=== PATIENT | female | born 1995 | race Caucasian/White ===

== ENCOUNTER 2023-10-07 18:00 | Inpatient (IN) | payer BC, SELFPAY ==
[2023-10-07] VITALS (9 sets, daily range): BP systolic 96–107; BP diastolic 62–72; PULSE 121–151; RESP 17–18; TEMP 36.5–36.8; O2SAT 92–98; BMI 32.0
[2023-10-07 19:47] LABS: Basophils # 0.1 10^3/uL (0.0-0.1); Basophils % 0.6 %; Eosinophils # 0.2 10^3/uL (0.0-0.8); Hematocrit 52.6 % (36-47); Lymphocytes # 1.8 10^3/uL (0.8-4.8); Lymphocytes % 9.5 %; Mean Corpuscular HGB Conc 35.6 g/dL (30-55); Mean Corpuscular Hemoglobin 33.3 pg (27-33); Mean Corpuscular Volume 93.6 fl (85-98); Mean Platelet Volume 8.8 fL (7.4-10.4); Monocytes # 0.8 10^3/uL (0.2-0.9); Monocytes % 4.1 %; Neutrophils # 15.88 10^3/uL (1.8-7.7); Neutrophils % 83.7 %; Nucleated Red Blood Cells % 0 %; Platelet Count 351 10^3/cmm (157-399); Red Blood Count 5.62 10^6/uL (3.85-5.65); Red Cell Distribution Width 12.1 % (12.1-15.1); White Blood Count 18.98 10^3/uL (3.29-11.43)
[2023-10-07 19:50] LABS: Add Urine Microscopic? YES
[2023-10-07 19:51] LABS: Glucose Urine UA Norm (Normal); Ketones Urine 1+ (Negative); Protein Urine 2+ (Negative); Specific Gravity, Urine 1.025 (1.005-1.030); Urine Appearance Cloudy (CLEAR); Urine Color Amber (Yellow); pH Urine 5 (5-7)
[2023-10-07 19:52] LABS: Add Urine Culture? Yes; Amorphous Sediment Urine TRACE /hpf; Bacteria Urine 2+ /hpf; Bilirubin Urine 2+ (Negative); Blood Urine 3+ (Negative); Coarse Granular Casts Urine 0-4 /lpf; Fine Granular Casts Urine 0-4 /lpf; Hyaline Casts Urine 0-4 /lpf; Leukocyte Esterase Urine 1+ (Negative); Nitrate Urine Positive (Negative); RBC Urine 15-25 /hpf (0-2); Urobilinogen Urine 4 mg/dL (Negative); WBC Urine 15-25 /hpf (0-5)
[2023-10-07 19:56] LABS: HCG Qualitative Urine. Negative (Negative)
[2023-10-07 20:03] LABS: Alanine Aminotransferase 52 U/L (0-33); Albumin Level 3.7 g/dL (3.5-5.2); Alkaline Phosphatase 124 U/L (35-105); Anion Gap 20.4 (5-19); Aspartate Amino Transferase 44 U/L (0-32); Blood Urea Nitrogen 20 mg/dL (6-20); Carbon Dioxide 20 mmol/L (22-29); Chloride 94 mmol/L (98-107); Globulin 3.5 g/dL (1.3-4.6); Glomerular Filtration Rate 41.7 mL/min (90-130); Glucose 138 mg/dL (65-115); Osmolality Calculated 277 mOsm/kg (285-295); Potassium 3.4 mmol/L (3.5-5.1); Sodium 131 mmol/L (136-145); Total Bilirubin 1.7 mg/dL (0.15-1.2); Total Protein 7.2 g/dL (6.6-8.7)
--- NOTE | 2023-10-07 20:03 | CTR_ITS ---
PROCEDURE INFORMATION: Exam: CT Abdomen And Pelvis With Contrast Exam date and time: 10/07/2023 8:26 PM Age: 28 years old Clinical indication: Pain and abnormal findings; Abnormal lab test; Elevated lipase and elevated wbc; Nausea and vomiting; Abdominal pain; Generalized; Prior surgery; Surgery date: 6+ months; Surgery type: Csection; Patient HX: Diffuse abd pain with n/v. Wbc 19k. Nitrate positive on ua. Lipase 947. [place]. ; Additional info: Abd distension, n/v abd pain TECHNIQUE: Imaging protocol: Computed tomography of the abdomen and pelvis with contrast. Radiation optimization: All CT scans at this facility use at least one of these dose optimization techniques: automated exposure control; mA and/or kV adjustment per patient size (includes targeted exams where dose is matched to clinical indication); or iterative reconstruction. Contrast material: OMNI 350; Contrast volume: 100 ml; Contrast route: INTRAVENOUS (IV); COMPARISON: US OB >= 14 weeks fetus [id number] 11/01/2016 8:25 AM RADIATION DOSE METRICS: Total DLP (mGy-cm): 815.36 FINDINGS: Lungs: Bibasilar atelectasis versus infiltrate. Pleural spaces: Small bilateral pleural effusions. Liver: Hepatic steatosis. Gallbladder and bile ducts: Normal. No calcified stones. No ductal dilation. Pancreas: Peripancreatic edema nonlocalized fluid with fluid extending throughout the remainder of the abdomen, concerning for pancreatitis, please correlate clinically. Spleen: Normal. No splenomegaly. Adrenal glands: Normal. No mass. Kidneys and ureters: Normal. No hydronephrosis. Stomach and bowel: Unremarkable. No obstruction. No mucosal thickening. Appendix: No evidence of appendicitis. Intraperitoneal space: Unremarkable. No free air. No significant fluid collection. Vasculature: Unremarkable. No abdominal aortic aneurysm. Lymph nodes: Unremarkable. No enlarged lymph nodes. Urinary bladder: Unremarkable as visualized. Reproductive: Unremarkable as visualized. Bones/joints: Unremarkable. No acute fracture. Soft tissues: Unremarkable. CT/CT abdomen pelvis w con* [id number] IMPRESSION: 1. Peripancreatic edema nonlocalized fluid with fluid extending throughout the remainder of the abdomen, concerning for pancreatitis, please correlate clinically. 2. Small bilateral pleural effusions. 3. Bibasilar atelectasis versus infiltrate. 4. Hepatic steatosis.
--- NOTE | 2023-10-07 20:07 | ED_ITS ---
HPI - Abdominal Pain 2 General: Chief Complaint: Abdominal Pain Stated Complaint: abd pain Time Seen by Provider: 10/07/23 19:33 History of Present Illness: Patient presents to the ER with diffuse abdominal pain and bloating. Patient states her last bowel movement was approximately 2 days ago. She had has nausea and vomiting today. The pain is diffuse does not radiate. Patient denies any urinary problems. Patient does not have an appetite and has not ate or drink anything in the last couple days other than a couple bites of chicken soup. Patient denies any abdominal surgery other than a . Patient does not routinely have abdominal problems. Review of Systems 2 General: Reports: 10 or more systems reviewed and unremarkable except in HPI and below PFSH ED 2 PFSH: Medical History Body mass index (BMI) of 30 to 39 in adult Allergic rhinitis due to allergen Insomnia delivery delivered Wellness examination Smoker Plaque psoriasis Depression Social History Smoking and tobacco/nicotine status: current every day tobacco/nicotine user Alcohol intake: current Alcohol intake frequency: few times a week Physical Exam 2 Const: COMMON NORMALS: no acute distress, average body habitus, patient oriented x3, no limitations, healthy appearing, alert and well nourished HENMT: COMMON NORMALS: normocephalic, atraumatic, hearing grossly normal bilaterally, external ears normal, Normal external nose present, moist oral mucous membranes and oropharynx normal HEAD & SCALP: normocephalic and atraumatic NOSE: Normal external nose present EXTERNAL EAR: Yes external ears normal Neck/C-Spine: COMMON NORMALS: no JVD Chest: COMMONS NORMALS: normal inspection of the chest and normal palpation of entire chest wall Resp: COMMON NORMALS: normal respiratory effort, No retractions, No use of accessory muscles and clear to auscultation bilaterally AUSCULTATION: clear to auscultation bilaterally Cardio: COMMON NORMALS: no JVD, regular rhythm, S1 normal heart sound present, S2 normal heart sound present, No gallops present (Cardio) and No murmurs present (Cardio); negative for regular rate (Tachycardic) RATE: abnormal rate (Tachycardic) RHYTHM: regular rhythm HEART SOUNDS: S1 normal heart sound present and S2 normal heart sound present GI: COMMON NORMALS: Soft to palpation, No hepatosplenomegaly present and no masses; negative for Normal to inspection, nondistended, normoactive bowel sounds present (Abdomen distended hypoactive bowel sounds tender to palpation diffusely) PALPATION: Yes Soft to palpation and Yes No hepatosplenomegaly present Neuro: COMMON NORMALS: patient oriented x3 SENSORIUM/ORIENTATION: Yes alert Course 2 Vital Signs: Vital signs: Vital Signs Temperature 97.7 F 10/07/23 18:24 Pulse Rate 133 H 10/07/23 19:46 Respiratory Rate 18 10/07/23 20:42 Blood Pressure 107/72 10/07/23 19:25 Pulse Oximetry 92 10/07/23 19:46 Oxygen Delivery Me thod Room Air 10/07/23 19:25 MDM - Abdominal Pain Medical Decision Making Patient lab work in the ER which showed a white count of 18.9 hemoglobin hematocrit of 18.7, 52.6, mildly elevated liver enzymes total bilirubin at 1.7, ALT of 44, AST to 52, lipase greater 947, urine drug screen showed positive for amphetamines benzos and THC, urinalysis showed positive for infection. CT scan showed positive for pancreatitis. Patient was given 30 mg Toradol IV, 10 mg Reglan, 4 mg of morphine, 1 L bolus normal saline. Dr. Smith was consulted who agreed to admit the patient for further evaluation and treatment. Differential Diagnosis Likely abdominal pain; Unlikely acute appendicitis, calculus of kidney, constipation, diverticulitis, endometriosis, gastroenteritis, pancreatitis or small bowel obstruction Medical Records I reviewed the patient's medical records. Lab Data I reviewed the patient's lab results. 10/07/23 19:34 10/07/23 19:34 Labs/Radiology: Radiology Impressions Abdomen/Pelvis CT 10/07/23 20:03 IMPRESSION: 1. Peripancreatic edema nonlocalized fluid with fluid extending throughout the remainder of the abdomen, concerning for pancreatitis, please correlate clinically. 2. Small bilateral pleural effusions. 3. Bibasilar atelectasis versus infiltrate. 4. Hepatic steatosis. Laboratory Results WBC 18.98 10^3/uL (3.29-11.43) H 10/07/23 19:34 RBC 5.62 10^6/uL (3.85-5.65) 10/07/23 19:34 Hgb 18.70 g/dL (11.27-16.99) H 10/07/23 19:34 Hct 52.6 % (36-47) H 10/07/23 19:34 MCV 93.6 fl (85-98) 10/07/23 19:34 MCH 33.3 pg (27-33) H 10/07/23 19:34 MCHC 35.6 g/dL (30-55) 10/07/23 19:34 RDW 12.1 % (12.1-15.1) 10/07/23 19:34 Plt Count 351 10^3/cmm (157-399) 10/07/23 19:34 MPV 8.8 fL (7.4-10.4) 10/07/23 19:34 Neut % (Auto) 83.7 % 10/07/23 19:34 Lymph % (Auto) 9.5 % 10/07/23 19:34 [place] % (Auto) 4.1 % 10/07/23 19:34 Eos % (Auto) 1.0 % 10/07/23 19:34 Baso % (Auto) 0.6 % 10/07/23 19:34 Neut # (Auto) 15.88 10^3/uL (1.8-7.7) H 10/07/23 19:34 Lymph # (Auto) 1.8 10^3/uL (0.8-4.8) 10/07/23 19:34 [place] # (Auto) 0.8 10^3/uL (0.2-0.9) 10/07/23 19:34 Eos # (Auto) 0.2 10^3/uL (0.0-0.8) 10/07/23 19:34 Baso # (Auto) 0.1 10^3/uL (0.0-0.1) 10/07/23 19:34 Nucleated RBC % (auto) 0 % 10/07/23 19:34 Nucleated RBCs # 0.0 /100WBC 10/07/23 19:34 Sodium 131 mmol/L (136-145) L 10/07/23 19:34 Potassium 3.4 mmol/L (3.5-5.1) L 10/07/23 19:34 Chloride 94 mmol/L (98-107) L 10/07/23 19:34 Carbon Dioxide 20 mmol/L (22-29) L 10/07/23 19:34 Anion Gap 20.4 (5-19) H 10/07/23 19:34 BUN 20 mg/dL (6-20) 10/07/23 19:34 Creatinine 1.5 mg/dL (0.5-0.9) H 10/07/23 19:34 GFR Calculation 41.7 mL/min (90-130) L 10/07/23 19:34 Glucose 138 mg/dL (65-115) H 10/07/23 19:34 Calculated Osmolality 277 mOsm/kg (285-295) L 10/07/23 19:34 Calcium 8.8 mg/dL (8.5-10.5) 10/07/23 19:34 Total Bilirubin 1.7 mg/dL (0.15-1.2) H 10/07/23 19:34 AST 44 U/L (0-32) H 10/07/23 19:34 ALT 52 U/L (0-33) H 10/07/23 19:34 Alkaline Phosphatase 124 U/L (35-105) H 10/07/23 19:34 Total Protein 7.2 g/dL (6.6-8.7) 10/07/23 19:34 Albumin 3.7 g/dL (3.5-5.2) 10/07/23 19:34 Globulin 3.5 g/dL (1.3-4.6) 10/07/23 19:34 Lipase > 947 U/L (13-60) H 10/07/23 19:34 HCG, Qual Negative (Negative) 10/07/23 19:37 Urine Color [place] (Yellow) 10/07/23 19:37 Urine Appearance Cloudy (CLEAR) A 10/07/23 19:37 Urine pH 5 (5-7) 10/07/23 19:37 Ur Specific [place] 1.025 (1.005-1.030) 10/07/23 19:37 Urine Protein 2+ (Negative) H 10/07/23 19:37 Urine Glucose (UA) Norm (Normal) 10/07/23 19:37 Urine Ketones 1+ (Negative) H 10/07/23 19:37 Urine Blood 3+ (Negative) H 10/07/23 19:37 Urine Nitrate Positive (Negative) H 10/07/23 19:37 Urine Bilirubin 2+ (Negative) H 10/07/23 19:37 Urine Urobilinogen 4 mg/dL (Negative) H 10/07/23 19:37 Ur Leukocyte Esterase 1+ (Negative) H 10/07/23 19:37 Urine RBC 15-25 /hpf (0-2) H 10/07/23 19:37 Urine WBC 15-25 /hpf (0-5) H 10/07/23 19:37 Ur Squamous Epith Cells 5-10 /hpf (0-5) H 10/07/23 19:37 Amorphous Sediment Trace /hpf 10/07/23 19:37 Urine Bacteria 2+ /hpf (NONE) H 10/07/23 19:37 Hyaline Casts 0-4 /lpf H 10/07/23 19:37 Fine Granular Casts 0-4 /lpf H 10/07/23 19:37 Coarse Granular Casts 0-4 /lpf H 10/07/23 19:37 Urine Opiates Screen Negative ng/mL (Negative) 10/07/23 19:32 Ur Barbiturates Screen Negative ng/mL (Negative) 10/07/23 19:32 Ur Phencyclidine Scrn Negative ng/mL (Negative) 10/07/23 19:32 Ur Amphetamines Screen Positive ng/mL (Negative) H 10/07/23 19:32 U Benzodiazepines Scrn Positive ng/mL (Negative) H 10/07/23 19:32 Urine Cocaine Screen Negative ng/mL (Negative) 10/07/23 19:32 U Marijuana (THC) Screen Positive ng/mL (Negative) H 10/07/23 19:32 All radiology interpretation(s) finalized by discharge Discharge Plan Discharge Patient Disposition: Admitted As Inpatient Clinical Impression: Amphetamine abuse Pancreatitis Qualifiers: Chronicity: acute Pancreatitis type: unspecified pancreatitis type Acute pancreatitis complication: no infection or necrosis Qualified Code(s): K85.90 - Acute pancreatitis without necrosis or infection, unspecified Urinary tract infection Qualifiers: Urinary tract infection type: acute cystitis Hematuria presence: with hematuria Qualified Code(s): N30.01 - Acute cystitis with hematuria Condition: Stable Coding Level of Care Code ED Inspector Returned Materials for Neil Rojas
[2023-10-07] MEDS: sodium chloride 0.9% 1,000 ML 999 ML IV (20:10)
[2023-10-07] MEDS: ketorolac 30 mg/mL INJ IVP (20:11)
[2023-10-07] MEDS: ondansetron 2 mg/ML SDV 2 mL 4 MG IVP (20:12)
[2023-10-07 20:18] LABS: Calcium 8.8 mg/dL (8.5-10.5)
[2023-10-07] MEDS: iohexol 350 mg/mL 500 mL Btl (per mL) IV (20:29)
[2023-10-07 20:35] LABS: Amphetamines Screen Urine Positive (Negative); Barbiturates Screen Urine Negative (Negative); Benzodiazepines Screen Urine Positive (Negative); Cocaine Screen Urine Negative (Negative); Opiate Screen Urine Negative (Negative); PCP Screen Urine Negative (Negative); THC Screen Urine Positive (Negative)
[2023-10-07] MEDS: morphine 4 mg/mL SDV 1 mL IVP (20:42)
[2023-10-07] MEDS: piperacillin-tazobactam 3.375 GM in sodium chloride 0.9% (plus) 50 ML IV (21:27)
--- NOTE | 2023-10-07 22:20 | P.HP_ITS ---
Providers/Chief Complaint 2 Admitting Physician: Michael Hearn MD Primary Care Provider: Christoph Chapman MD Chief Complaint: abd pain History of Present Illness Yara Rodriguez is a 28 year old female with a past medical history of depression, who presents to [facility] for a 48-hour history of nausea, vomiting, abdominal bloating, poor appetite. 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, denies blacking out from alcohol consumption, does report smoking, her urine was positive for methamphetamines, benzodiazepines, she denies this, she tells me she has not used any drugs, she has been using Benadryl and Mucinex Review of Systems 2 Const: Denies: fever(s) or chills Card: Denies: chest pain Resp: Denies: dyspnea GI: Reports: abdominal pain, nausea and vomiting Medications/Allergies Home Medications Medication Instructions Recorded Confirmed Last Taken Type prenat.vits,pablo,hmf-myrp-dqizi 1 tab PO DAILY 12/25/20 12/01/22 Unknown History bupropion HCl 200 mg tablet,12 hr 200 mg PO QAM depression #30 tabs 11/22/22 12/01/22 Unknown Rx sustained-release fluticasone propionate 50 2 spray intranasal DAILY PRN 11/22/22 12/01/22 Unknown Rx mcg/actuation nasal allergy symptoms #16 grams spray,suspension hydroxyzine HCl 25 mg tablet 25 mg PO BID PRN insomnia #60 tabs 11/22/22 12/01/22 Unknown Rx clobetasol 0.05 % scalp solution 1 applic topical DAILY #50 mL 12/01/22 12/01/22 Unknown Rx ketoconazole 2 % shampoo 1 applic topical .COMPLEX #120 mL 12/01/22 12/01/22 Unknown Rx triamcinolone acetonide 0.1 % 1 applic topical BID L40.9 #80 03/15/23 Unknown Rx topical ointment grams clobetasol 0.05 % topical ointment 1 applic topical BID L40.9 2 weeks 04/17/23 Unknown Rx #60 grams Allergies Allergy/AdvReac Type Severity Reaction Status Date / Time No Known Allergies Allergy Verified 12/01/22 14:02 PFSH Acute 2 PFSH: Medical History (Updated 10/07/23 @ 22:24 by Michael Hearn MD) Body mass index (BMI) of 30 to 39 in adult Allergic rhinitis due to allergen Insomnia delivery delivered Wellness examination Smoker Plaque psoriasis Depression Surgical History (Updated 10/07/23 @ 22:22 by Michael Hearn MD) History of Family History (Updated 10/07/23 @ 22:23 by Michael Hearn MD) Mother CAD (coronary artery disease) Social History Smoking and tobacco/nicotine status: current every day tobacco/nicotine user Alcohol intake: current Alcohol intake frequency: few times a week Vitals/I&O/Wt Last Vital Signs Temp 97.7 F 10/07/23 18:24 Pulse 133 H 10/07/23 19:46 Resp 18 10/07/23 20:42 BP 107/72 10/07/23 19:25 Pulse Ox 92 10/07/23 19:46 O2 Del Method Room Air 10/07/23 19:25 Weight last 48 hrs Weight 79.379 kg Physical Exam 2 Const: COMMON NORMALS: no acute distress and patient oriented x3 HENMT: COMMON NORMALS: normocephalic HEAD & SCALP: normocephalic Eye: COMMON NORMALS: Equal, round and reactive pupils present and EOMs intact bilaterally Neck/C-Spine: COMMON NORMALS: no JVD Lymph: LYMPHATIC: no lymphadenopathy noted Resp: COMMON NORMALS: normal respiratory effort, No retractions, No use of accessory muscles and clear to auscultation bilaterally AUSCULTATION: clear to auscultation bilaterally Cardio: COMMON NORMALS: regular rate, S1 normal heart sound present and S2 normal heart sound present RATE: tachycardic RHYTHM: regular rhythm H EART SOUNDS: S1 normal heart sound present and S2 normal heart sound present GI: OTHER: Abdomen soft, distended, diminished bowel sounds in all 4 quadrants, no guarding, no rebound, no rigidity, does have diffuse tenderness Extremity: COMMON NORMALS: no calf tenderness and no pedal edema Neuro: COMMON NORMALS: patient oriented x3, CN's II-XII intact bilaterally and moves all extremities Psych: COMMON NORMALS: mental status grossly normal Data 10/07/23 19:34 10/07/23 19:34 A&P Assessment and plan (1) Acute alcoholic pancreatitis: (2) Alcoholism: (3) Urinary tract infection: Qualifiers: Hematuria presence: with hematuria Urinary tract infection type: acute cystitis Qualified Code(s): N30.01 - Acute cystitis with hematuria (4) Acute kidney injury: (5) Transaminitis: Plan Alcoholic pancreatitis Plan -N.p.o. -Zofran Reglan for nausea -IV fluids -Morphine for pain control -Serial abdominal exams Metabolic acidosis, secondary dehydration, IV fluids Transaminitis, with hyperbilirubinemia, likely secondary to pancreatitis Alcoholism, high risk of alcohol withdrawal -[facility] protocol -Antibiotic ÁNGELA, IV fluids Hyponatremia, IV fluids UTI, Rocephin Urine positive for amphetamines, benzodiazepines, marijuana, patient denies drug use Attestations 2 Medical Necessity Statement*: Patient requires hospitalization, inpatient, greater than 2 midnights, for alcoholic pancreatitis, alcoholism, ÁNGELA, UTI, Diagnoses Acute alcoholic pancreatitis K85.20 Alcoholism F10.20 Urinary tract infection N30.01 Hematuria presence: with hematuria Urinary tract infection type: acute cystitis Acute kidney injury N17.9 Transaminitis R74.01
--- NOTE | 2023-10-07 23:07 | ECG_ITS ---
[facility] Test Date: 2023-10-07 Pat Name: Yara Rodriguez Department: Room: 253 Gender: Female Jail Guard: : 1995 Requested By: Michael Hearn Order Number: [id number] Krista MD: Ryanne Montoya M.D. Measurements Intervals [place] Rate: 124 P: 16 WV: 132 QRS: 60 QRSD: 89 T: 29 QT: 321 QTc: 462 Interpretive Statements SINUS TACHYCARDIA POSSIBLE ANTERIOR MYOCARDIAL INFARCTION , PROBABLY OLD [30 ms Q WAVE IN V3/V4, OR R < 0.2 mV IN V4] ABNORMAL RHYTHM ECG Compared to ECG 05/18/2016 16:10:50 Myocardial infarct finding now present Sinus rhythm no longer present Sinus arrhythmia no longer present Incomplete right bundle-branch block no longer present Electronically Signed On 10-08-2023 21:22:59 HEALTH SAFETY SPECIALIST by Ryanne Montoya M.D. [id number]
[2023-10-07 23:16] LABS: Estmated Average Glucose 105; Hemoglobin A1C 5.3 % (4.0-6.0)
[2023-10-07 23:17] LABS: Lactic Sepsis W/Reflex 1.9 mmol/L (0.5-2.2); Troponin(5th) Baseline < 6 ng/L (0-10)
[2023-10-07 23:25] LABS: Procalcitonin 0.21 ng/mL (0-0.5); Thyroid Stimulating Hormone 1.91 uIU/mL (0.27-4.20)
[2023-10-07] MEDS: pantoprazole 40 mg SDV IVP (23:27)
[2023-10-07] MEDS: morphine 4 mg/mL SDV 1 mL 2 MG IVP (23:28)
[2023-10-07] MEDS: sodium chloride 0.9% 1,000 ML 125 ML IV (23:28)
[2023-10-07 23:36] LABS: Chol HDL Ratio 6.46 mg/dL (0.0-4.40); Cholesterol 168 mg/dL (0-200); HDL Cholesterol 26 mg/dL (60-100); LDL Cholesterol Calculated 89 mg/dL (50-129); LDL HDL Ratio 3.42 RATIO (0.00-3.22); Magnesium 1.5 mg/dL (1.7-2.3); Phosphorus 4.1 mg/dL (2.5-4.5); Triglycerides 267 mg/dL (0-150)
[2023-10-07 23:38] LABS: Alcohol Level < 10 mg/dL (0-10)
[2023-10-07 23:49] LABS: C Reactive Protein 358.4 mg/L (0.0-4.9)
[2023-10-08] VITALS (14 sets, daily range): BP systolic 105–123; BP diastolic 65–79; PULSE 112–133; RESP 16–20; TEMP 36.8–37.2; O2SAT 90–95; BMI 33.2
[2023-10-08 01:25] LABS: Troponin 5 2HR Delta 0.00001 ABS# (0-10)
[2023-10-08] MEDS: HYDROmorphone 1 mg/mL INJ 1 mL IVP ×3 (01:58→10:18)
[2023-10-08] MEDS: sodium chloride 0.9% 1,000 ML 125 ML IV ×3 (05:58→23:25)
[2023-10-08 06:03] LABS: Basophils # 0.1 10^3/uL (0.0-0.1); Basophils % 0.4 %; Eosinophils # 0.4 10^3/uL (0.0-0.8); Eosinophils % 1.9 %; Hematocrit 48.6 % (36-47); Lymphocytes # 2.1 10^3/uL (0.8-4.8); Lymphocytes % 10.7 %; Mean Corpuscular HGB Conc 34.8 g/dL (30-55); Mean Corpuscular Hemoglobin 32.9 pg (27-33); Mean Corpuscular Volume 94.7 fl (85-98); Mean Platelet Volume 8.8 fL (7.4-10.4); Monocytes # 1.1 10^3/uL (0.2-0.9); Monocytes % 5.6 %; Neutrophils # 15.98 10^3/uL (1.8-7.7); Neutrophils % 80.1 %; Nucleated Red Blood Cells % 0 %; Platelet Count 321 10^3/cmm (157-399); Red Blood Count 5.13 10^6/uL (3.85-5.65); Red Cell Distribution Width 12.3 % (12.1-15.1); White Blood Count 19.93 10^3/uL (3.29-11.43)
[2023-10-08 06:24] LABS: Alanine Aminotransferase 37 U/L (0-33); Albumin Level 3.2 g/dL (3.5-5.2); Alkaline Phosphatase 110 U/L (35-105); Anion Gap 15.9 (5-19); Aspartate Amino Transferase 34 U/L (0-32); Blood Urea Nitrogen 20 mg/dL (6-20); Calcium 7.8 mg/dL (8.5-10.5); Carbon Dioxide 23 mmol/L (22-29); Chloride 99 mmol/L (98-107); Globulin 2.6 g/dL (1.3-4.6); Glomerular Filtration Rate 66.5 mL/min (90-130); Glucose 102 mg/dL (65-115); Magnesium 1.7 mg/dL (1.7-2.3); Osmolality Calculated 281 mOsm/kg (285-295); Potassium 3.9 mmol/L (3.5-5.1); Sodium 134 mmol/L (136-145); Total Bilirubin 1.6 mg/dL (0.15-1.2); Total Protein 5.8 g/dL (6.6-8.7)
[2023-10-08 06:41] LABS: Troponin 5 6HR Delta 0 ng/L (0-12)
[2023-10-08] MEDS: cefTRIAXone 1,000 MG in sodium chloride 0.9% (plus) 50 ML 100 MG IV (10:00)
[2023-10-08] MEDS: folic acid 1 mg Tablet PO (10:00)
[2023-10-08] MEDS: multivitamin therapeutic Tablet 1 TAB PO (10:00)
[2023-10-08] MEDS: thiamine 100 mg Tablet PO (10:00)
[2023-10-08 12:57] LABS: Iron 16 ug/dL (37-145); Percent Saturation 8.6 % (20-50); Total Iron Binding Capacity 185 mcg/dl; Unsaturated Iron Binding 169 ug/dL (112-347)
[2023-10-08 13:12] LABS: Procalcitonin 0.54 ng/mL (0-0.5); Vitamin B12 1087 pg/mL (232-1245)
[2023-10-08] MEDS: HYDROmorphone 1 mg/mL INJ 1 mL 0.5 MG IVP ×3 (14:18→22:45)
--- NOTE | 2023-10-08 15:30 | P.PN_ITS ---
Subjective 2 Subjective: Admitted overnight. States pain is well-controlled for now. Denies any nausea, vomiting, headache. Does state that she drinks at least 3 or 4 shots of alcohol daily. Denies use of amphetamines. Vitals/I&O/Wt Last Vital Signs Temp 98.5 F 10/08/23 12:00 Pulse 120 H 10/08/23 12:00 Resp 18 10/08/23 14:18 BP 105/65 10/08/23 12:00 Pulse Ox 95 10/08/23 14:18 O2 Del Method Nasal Cannula 10/08/23 12:00 10/08/23 10/08/23 10/08/23 06:59 14:59 22:59 Intake Total 1862.5 / 1862.5 1050 / 1050 Balance 1862.5 / 1862.5 1050 / 1050 Weight last 48 hrs Weight 82.327 kg Weight 79.379 kg Weight 79.379 kg Physical Exam 2 Const: COMMON NORMALS: no acute distress and patient oriented x3 HENMT: COMMON NORMALS: normocephalic HEAD & SCALP: normocephalic Eye: COMMON NORMALS: Equal, round and reactive pupils present and EOMs intact bilaterally PUPIL: Yes Equal, round and reactive pupils present Neck/C-Spine: COMMON NORMALS: no JVD Lymph: LYMPHATIC: no lymphadenopathy noted Resp: COMMON NORMALS: normal respiratory effort, No retractions, No use of accessory muscles and clear to auscultation bilaterally AUSCULTATION: clear to auscultation bilaterally Cardio: COMMON NORMALS: no JVD, regular rate, regular rhythm, S1 normal heart sound present and S2 normal heart sound present RATE: regular rate and tachycardic RHYTHM: regular rhythm HEART SOUNDS: S1 normal heart sound present and S2 normal heart sound present GI: OTHER: Abdomen soft, distended, diminished bowel sounds in all 4 quadrants, no guarding, no rebound, no rigidity, does have diffuse tenderness Extremity: COMMON NORMALS: no calf tenderness and no pedal edema Neuro: COMMON NORMALS: patient oriented x3, CN's II-XII intact bilaterally and moves all extremities Psych: COMMON NORMALS: mental status grossly normal Data 10/08/23 05:45 10/08/23 05:45 A&P Assessment and plan (1) Acute alcoholic pancreatitis: (2) Alcoholism: (3) Urinary tract infection: Qualifiers: Hematuria presence: with hematuria Urinary tract infection type: acute cystitis Qualified Code(s): N30.01 - Acute cystitis with hematuria (4) Acute kidney injury: (5) Transaminitis: Plan Pancreatitis: Most likely in setting of alcohol abuse. Given young age cannot rule out autoimmune disorder. Patient also has history of psoriasis. Check EVELIA panel. No concerns for gallstones. Triglycerides elevated but less than 500. Conservative treatment. Keep NPO. IV hydration. Trial of liquid diet tomorrow. Continue with current pain medications. Leukocytosis: Most likely in setting of aggressive inflammation from pancreatitis. For now continue with IV antibiotics. Switch from ceftriaxone to Zosyn for now. No blood cultures taken on admission. If patient spikes fever will check blood cultures. Transaminitis/hyperbilirubinemia: In setting of pancreatitis. CT abdomen pelvis negative for gallbladder pathology. ÁNGELA: Creatinine trending down. Down to 1.1. Most likely elevated on admission in setting of dehydration. Iron deficiency anemia. Check procalcitonin, vitamin B12, folate level. TSH or appreciated on admission. Alcohol abuse: [facility] protocol. Urine drug screen positive for amphetamines, benzodiazepines, marijuana. Patient denies drug abuse. UA concerning for mild UTI. Nitrite positive, leukoesterase positive. Zosyn should cover for UTI. Follow-up urine cultures. Attestations 2 Medical Necessity Statement*: Requires further hospitalization for management of pancreatitis in a patient with history of alcohol abuse, drug screen positive for amphetamines and UTI Diagnoses Acute alcoholic pancreatitis K85.20 Alcoholism F10.20 Urinary tract infection N30.01 Hematuria presence: with hematuria Urinary tract infection type: acute cystitis Acute kidney injury N17.9 Transaminitis R74.01
[2023-10-08] MEDS: piperacillin-tazobactam 3.375 GM in sodium chloride 0.9% (plus) 50 ML IV ×2 (17:20→23:29)
[2023-10-08] MEDS: acetaminophen 325 mg Tablet 650 MG PO (21:05)
[2023-10-08] MEDS: trazodone 50 mg Tablet PO (21:06)
[2023-10-08] MEDS: enoxaparin 40 mg/0.4 mL Syringe SUBCUT (22:46)
[2023-10-08] MEDS: pantoprazole 40 mg SDV IVP (22:46)
[2023-10-09] VITALS (16 sets, daily range): BP systolic 105–122; BP diastolic 63–78; PULSE 109–129; RESP 14–22; TEMP 36.3–37.4; O2SAT 90–93; BMI 33.9
[2023-10-09] MEDS: HYDROmorphone 1 mg/mL INJ 1 mL 0.5 MG IVP (02:40)
[2023-10-09 04:49] LABS: Basophils # 0.1 10^3/uL (0.0-0.1); Basophils % 0.3 %; Eosinophils # 0.2 10^3/uL (0.0-0.8); Eosinophils % 1.3 %; Hematocrit 38.6 % (36-47); Lymphocytes # 1.5 10^3/uL (0.8-4.8); Lymphocytes % 8.5 %; Mean Corpuscular HGB Conc 34.2 g/dL (30-55); Mean Corpuscular Hemoglobin 32.9 pg (27-33); Mean Corpuscular Volume 96.3 fl (85-98); Mean Platelet Volume 9.2 fL (7.4-10.4); Monocytes % 5.8 %; Neutrophils # 14.22 10^3/uL (1.8-7.7); Neutrophils % 82.7 %; Nucleated Red Blood Cells % 0 %; Platelet Count 256 10^3/cmm (157-399); Red Blood Count 4.01 10^6/uL (3.85-5.65); Red Cell Distribution Width 12.6 % (12.1-15.1)
[2023-10-09 05:10] LABS: Alanine Aminotransferase 25 U/L (0-33); Albumin Level 2.8 g/dL (3.5-5.2); Alkaline Phosphatase 108 U/L (35-105); Anion Gap 15.5 (5-19); Aspartate Amino Transferase 34 U/L (0-32); Blood Urea Nitrogen 13 mg/dL (6-20); Calcium 7.6 mg/dL (8.5-10.5); Carbon Dioxide 22 mmol/L (22-29); Chloride 97 mmol/L (98-107); Glomerular Filtration Rate 100.4 mL/min (90-130); Glucose 87 mg/dL (65-115); Osmolality Calculated 271 mOsm/kg (285-295); Potassium 3.5 mmol/L (3.5-5.1); Sodium 131 mmol/L (136-145); Total Bilirubin 1.2 mg/dL (0.15-1.2); Total Protein 5.8 g/dL (6.6-8.7)
[2023-10-09 05:24] LABS: Folate Level 7.2 ng/mL (4.8-37.3); Magnesium 1.9 mg/dL (1.7-2.3); Phosphorus 2.1 mg/dL (2.5-4.5)
[2023-10-09] MEDS: HYDROmorphone 1 mg/mL INJ 1 mL IVP ×5 (06:13→21:45)
[2023-10-09] MEDS: folic acid 1 mg Tablet PO (07:35)
[2023-10-09] MEDS: thiamine 100 mg Tablet PO (07:35)
[2023-10-09] MEDS: multivitamin therapeutic Tablet 1 TAB PO (07:35)
[2023-10-09] MEDS: piperacillin-tazobactam 3.375 GM in sodium chloride 0.9% (plus) 50 ML IV ×2 (07:35→15:50)
[2023-10-09] MEDS: sodium chloride 0.9% 1,000 ML 125 ML IV ×2 (07:36→17:40)
[2023-10-09 09:40] LABS: Lipase 224 U/L (13-60)
[2023-10-09] MEDS: pantoprazole 40 mg SDV IVP ×2 (09:56→21:46)
[2023-10-09 15:01] LABS: Anti-Double Strand DNA AB <1 IU/mL; Jo-1 Antibody <1.0 NEG AI (<1.0 NEG); SS-B/LA IGG <1.0 NEG AI (<1.0 NEG); Scleroderma Ab(Scl-70) Ab <1.0 NEG AI (<1.0 NEG); Ss-A/Ro Igg <1.0 NEG AI (<1.0 NEG)
[2023-10-09] MEDS: LORazepam 2 mg Tablet PO (16:40)
--- NOTE | 2023-10-09 20:39 | P.PN_ITS ---
Subjective 2 Subjective: Overnight was having pain, required additional IV opioid. This morning again having some pain. No nausea or vomiting. Tolerating ice chips and water sips. Vitals/I&O/Wt Last Vital Signs Temp 97.8 F 10/09/23 16:10 Pulse 109 H 10/09/23 16:24 Resp 14 10/09/23 17:40 BP 111/63 10/09/23 16:10 Pulse Ox 91 10/09/23 16:10 O2 Del Method Nasal Cannula 10/09/23 16:10 O2 Flow Rate 2 10/09/23 00:00 10/09/23 10/09/23 10/09/23 06:59 14:59 22:59 Intake Total 1050 / 2150 1558.333 / 1558.333 541.667 / 2100.000 Balance 1050 / 2150 1558.333 / 1558.333 541.667 / 2100.000 Weight last 48 hrs Weight 84.141 kg Weight 82.327 kg Weight 79.379 kg Physical Exam 2 Const: GENERAL APPEARANCE: cooperative ORIENTATION/CONSCIOUSNESS: Yes awake HENMT: COMMON NORMALS: oropharynx normal Neck/C-Spine: COMMON NORMALS: no JVD Resp: COMMON NORMALS: normal respiratory effort and clear to auscultation bilaterally AUSCULTATION: clear to auscultation bilaterally Cardio: COMMON NORMALS: no JVD, regular rhythm, S1 normal heart sound present, S2 normal heart sound present and No murmurs present (Cardio) RHYTHM: regular rhythm HEART SOUNDS: S1 normal heart sound present and S2 normal heart sound present GI: COMMON NORMALS: Normal to inspection, nondistended, normoactive bowel sounds present, Soft to palpation and non-tender PALPATION: Yes Soft to palpation OTHER: Tender epigastrium. Extremity: COMMON NORMALS: no joint enlargement and no pedal edema Data 10/09/23 04:14 10/09/23 04:14 Micro: Microbiology 10/07/23 19:37 Urine Culture - Final Urine,Clean Catch A&P Assessment and plan (1) Acute alcoholic pancreatitis: (2) Alcoholism: (3) Urinary tract infection: Qualifiers: Hematuria presence: with hematuria Urinary tract infection type: acute cystitis Qualified Code(s): N30.01 - Acute cystitis with hematuria (4) Acute kidney injury: (5) Transaminitis: Plan Pancreatitis: Most likely in setting of alcohol abuse. Discussed with her alcohol abstinence due to risk of recurrence of pancreatitis, other risks. She states intensity of abstain from any alcohol. Reviewed vitals, CBC, CMP, requested lipase. Still in pain, still requiring IV opioids. Continue pain management. N.p.o., sips and chips. Discussed with her, she will let us know when she is feeling slightly better and wants to try to advance to some clear liquids. Continue IV PPI. Continue IV fluid. Risk of fluid overload, monitor. Empirically on Zosyn. Risk of C. difficile, monitor. Discussed with skilled nursing case manager. Did not encourage EtOH abstinence. Consideration given to autoimmune disorder. Patient also has history of psoriasis. Reviewed antibodies, anti-Jo1 negative, anti-SSA negative, anti-SSB negative, anti-SCL 70 negative, anti-dsDNA negative, NT BONE PLANT SUPERVISOR/Nova antibody pending. No concerns for gallstones. Triglycerides elevated but less than 500. Leukocytosis: Most likely in setting of aggressive inflammation from pancreatitis. For now continue with IV antibiotics. Switch from ceftriaxone to Zosyn for now. No blood cultures taken on admission. If patient spikes fever will check blood cultures. Transaminitis/hyperbilirubinemia: In setting of pancreatitis. CT abdomen pelvis negative for gallbladder pathology. ÁNGELA: Reviewed BUN, creatinine ÁNGELA is resolved. Hypophosphatemia: 2.1. Resume oral intake once tolerating. Recheck phosphorus. Recheck magnesium. Iron deficiency anemia. Reviewed procalcitonin, vitamin B12, folate level. TSH Alcohol abuse: [facility] protocol. Urine drug screen positive for amphetamines, benzodiazepines, marijuana. Patient denies drug abuse. UA concerning for mild UTI. Nitrite positive, leukoesterase positive. Zosyn should cover for UTI. Reviewed urine cultures. 30-40,000 mixed urogenital yuliana. Attestations 2 Medical Necessity Statement*: Continue admission for assessment of management of acute pancreatitis. Diagnoses Acute alcoholic pancreatitis K85.20 Alcoholism F10.20 Urinary tract infection N30.01 Hematuria presence: with hematuria Urinary tract infection type: acute cystitis Acute kidney injury N17.9 Transaminitis R74.01
[2023-10-09] MEDS: enoxaparin 40 mg/0.4 mL Syringe SUBCUT (21:46)
[2023-10-09] MEDS: trazodone 50 mg Tablet PO (21:46)
[2023-10-10] VITALS (8 sets, daily range): BP systolic 121–128; BP diastolic 76–86; PULSE 78–122; RESP 16–22; TEMP 36.4–37.3; O2SAT 90–94
[2023-10-10] MEDS: piperacillin-tazobactam 3.375 GM in sodium chloride 0.9% (plus) 50 ML IV ×4 (00:40→23:48)
[2023-10-10] MEDS: HYDROmorphone 1 mg/mL INJ 1 mL IVP ×5 (02:01→21:33)
[2023-10-10] MEDS: sodium chloride 0.9% 1,000 ML 125 ML IV ×3 (02:19→21:33)
[2023-10-10] MEDS: LORazepam 2 mg Tablet PO (04:46)
[2023-10-10 04:55] LABS: Basophils # 0.1 10^3/uL (0.0-0.1); Basophils % 0.4 %; Eosinophils # 0.1 10^3/uL (0.0-0.8); Eosinophils % 0.5 %; Hematocrit 37.3 % (36-47); Lymphocytes # 1.6 10^3/uL (0.8-4.8); Lymphocytes % 8.3 %; Mean Corpuscular HGB Conc 34.3 g/dL (30-55); Mean Corpuscular Hemoglobin 33.4 pg (27-33); Mean Corpuscular Volume 97.4 fl (85-98); Mean Platelet Volume 8.9 fL (7.4-10.4); Monocytes # 1.2 10^3/uL (0.2-0.9); Monocytes % 6.3 %; Neutrophils # 15.54 10^3/uL (1.8-7.7); Neutrophils % 83.2 %; Nucleated Red Blood Cells % 0 %; Platelet Count 284 10^3/cmm (157-399); Red Blood Count 3.83 10^6/uL (3.85-5.65); Red Cell Distribution Width 12.6 % (12.1-15.1)
[2023-10-10 05:14] LABS: Alanine Aminotransferase 20 U/L (0-33); Albumin Level 3.1 g/dL (3.5-5.2); Alkaline Phosphatase 124 U/L (35-105); Anion Gap 17.6 (5-19); Aspartate Amino Transferase 35 U/L (0-32); Blood Urea Nitrogen 9 mg/dL (6-20); Calcium 8.2 mg/dL (8.5-10.5); Carbon Dioxide 20 mmol/L (22-29); Chloride 97 mmol/L (98-107); Globulin 2.4 g/dL (1.3-4.6); Glucose 76 mg/dL (65-115); Osmolality Calculated 269 mOsm/kg (285-295); Potassium 3.6 mmol/L (3.5-5.1); Sodium 131 mmol/L (136-145); Total Bilirubin 0.9 mg/dL (0.15-1.2); Total Protein 5.5 g/dL (6.6-8.7)
[2023-10-10 05:15] LABS: Lipase 102 U/L (13-60); Magnesium 2.1 mg/dL (1.7-2.3); Phosphorus 1.8 mg/dL (2.5-4.5)
[2023-10-10] MEDS: multivitamin therapeutic Tablet 1 TAB PO (08:23)
[2023-10-10] MEDS: folic acid 1 mg Tablet PO (08:23)
[2023-10-10] MEDS: thiamine 100 mg Tablet PO (08:23)
[2023-10-10] MEDS: pantoprazole 40 mg SDV IVP ×2 (10:18→21:33)
--- NOTE | 2023-10-10 11:32 | P.PN_ITS ---
Subjective 2 Subjective: She did try some Jell-O last night and seemed to tolerate it okay. This morning has been on sips and chips. She would like to try to advance to clear liquids, and if doing well we will try to see if she can advance further. Then discussing with her again recommendation for alcohol abstinence, she states that she intends to abstain. Discussed with her whether she uses any other recreational substances she drifts asleep and mumbles confused . Vitals/I&O/Wt Last Vital Signs Temp 97.7 F 10/10/23 08:09 Pulse 122 H 10/10/23 08:09 Resp 19 H 10/10/23 08:09 BP 121/78 10/10/23 08:09 Pulse Ox 90 10/10/23 08:09 O2 Del Method Room Air 10/10/23 08:09 O2 Flow Rate 2 10/09/23 00:00 10/09/23 10/10/23 10/10/23 22:59 06:59 14:59 Intake Total 541.667 / 2100.000 1375 / 3475.000 Balance 541.667 / 2100.000 1375 / 3475.000 Weight last 48 hrs Weight 85.91 kg Weight 84.141 kg Physical Exam 2 Const: GENERAL APPEARANCE: cooperative OTHER: Awake initially, was able to fall asleep through the interview. HENMT: COMMON NORMALS: oropharynx normal Neck/C-Spine: COMMON NORMALS: no JVD Resp: COMMON NORMALS: normal respiratory effort and clear to auscultation bilaterally AUSCULTATION: clear to auscultation bilaterally Cardio: COMMON NORMALS: no JVD, regular rhythm, S1 normal heart sound present, S2 normal heart sound present and No murmurs present (Cardio) RHYTHM: regular rhythm HEART SOUNDS: S1 normal heart sound present and S2 normal heart sound present GI: COMMON NORMALS: Normal to inspection, nondistended, normoactive bowel sounds present, Soft to palpation and non-tender PALPATION: Yes Soft to palpation OTHER: Tender epigastrium. Extremity: COMMON NORMALS: no joint enlargement and no pedal edema Data 10/10/23 04:38 10/10/23 04:38 Micro: Microbiology 10/07/23 19:37 Urine Culture - Final Urine,Clean Catch A&P Assessment and plan (1) Acute alcoholic pancreatitis: (2) Alcoholism: (3) Urinary tract infection: Qualifiers: Hematuria presence: with hematuria Urinary tract infection type: acute cystitis Qualified Code(s): N30.01 - Acute cystitis with hematuria (4) Acute kidney injury: (5) Transaminitis: Plan Pancreatitis: Reviewed vitals, CBC, CMP. Reviewed vitals, CBC, CMP. Lipase is decreasing. Down to 102. Still with leukocytosis 18.7. Still having pain, required IV pain medication. Continue treatment course abstinence from alcohol. Trial clear liquids. Continue IV PPI. Continue IV fluid. Risk of fluid overload, monitor. Empirically on Zosyn. Risk of C. difficile, monitor. Discussed with correctional case manager In rounds Consideration given to autoimmune disorder. Patient also has history of psoriasis. Reviewed antibodies, anti-Jo1 negative, anti-SSA negative, anti-SSB negative, anti-SCL 70 negative, anti-dsDNA negative, NT RESEARCH PHYSIOLOGIST/Nova antibody pending. No concerns for gallstones. Triglycerides elevated but less than 500. Leukocytosis: Most likely in setting of aggressive inflammation from pancreatitis. For now continue with IV antibiotics. Switch from ceftriaxone to Zosyn for now. No blood cultures taken on admission. If patient spikes fever will check blood cultures. Transaminitis/hyperbilirubinemia: In setting of pancreatitis. CT abdomen pelvis negative for gallbladder pathology. ÁNGELA: Reviewed BUN, creatinine ÁNGELA is resolved. Hypophosphatemia: Down to 1.8 today. Potassium soft 3.6. Will give K-Phos. Resume oral intake once tolerating. Recheck phosphorus. Reviewed magnesium. Iron deficiency anemia. Procalcitonin, vitamin B12, folate level,TSH Ok. Alcohol abuse: [facility] protocol. Urine drug screen positive for amphetamines, benzodiazepines, marijuana. Patient denies drug abuse. Today with some lethargy, mental status changes with acute encephalopathy, possibly alcohol withdrawal versus other substance withdrawal versus pain medication. Monitor. UA concerning for mild UTI. Nitrite positive, leukoesterase positive. Zosyn should cover for UTI. Reviewed urine cultures. 30-40,000 mixed urogenital yuliana. Attestations 2 Medical Necessity Statement*: Continue admission for assessment of management of acute pancreatitis. and High MDM includes amount and/or complexity of data reviewed/ordered [ resulted lab(s)/test(s), ordered lab(s)/test(s) and other healthcare professional discussion] and described risk of complication, morbidity or mortality of management as documented Diagnoses Acute alcoholic pancreatitis K85.20 Alcoholism F10.20 Urinary tract infection N30.01 Hematuria presence: with hematuria Urinary tract infection type: acute cystitis Acute kidney injury N17.9 Transaminitis R74.01
[2023-10-10] MEDS: potassium phosphate (mMol PO4) 15 MMOL in sodium chloride 0.9% (100 ml) 100 ML 42 MMOL IV (11:59)
[2023-10-10] MEDS: HYDROcodone-acetaminophen 5-325 mg Tablet 1 TAB PO ×2 (12:55→19:49)
[2023-10-10] MEDS: trazodone 50 mg Tablet PO (19:50)
--- NOTE | 2023-10-10 19:53 | PC.NURSE ---
This nurse to room to assess patient and provide pain medication. Patient was standing at bedside dressed in gown with towel in hair. Patient began to complain of pain, asking repeatedly when she could have dilaudid. Patient then took gown and towel off, laid in bed nude, and refused to cover herself using a blanket or clothing. She repeatedly asked about dilaudid. Provided education on PRN pain medications, provided norco prn, and educated patient to please wear clothes or covering when male family members of the patient in bed 1 are present.
[2023-10-10] MEDS: enoxaparin 40 mg/0.4 mL Syringe SUBCUT (21:33)
[2023-10-11] VITALS (12 sets, daily range): BP systolic 110–132; BP diastolic 70–84; PULSE 79–120; RESP 16–22; TEMP 36.3–36.8; O2SAT 90–97
[2023-10-11] MEDS: HYDROcodone-acetaminophen 5-325 mg Tablet 1 TAB PO ×5 (01:56→23:03)
[2023-10-11] MEDS: HYDROmorphone 1 mg/mL INJ 1 mL IVP ×6 (02:55→23:57)
[2023-10-11 04:22] LABS: Basophils % 0.2 %; Eosinophils # 0.2 10^3/uL (0.0-0.8); Eosinophils % 1.2 %; Hematocrit 35.8 % (36-47); Lymphocytes # 1.3 10^3/uL (0.8-4.8); Lymphocytes % 7.6 %; Mean Corpuscular HGB Conc 34.4 g/dL (30-55); Mean Corpuscular Hemoglobin 33.2 pg (27-33); Mean Corpuscular Volume 96.5 fl (85-98); Mean Platelet Volume 8.8 fL (7.4-10.4); Monocytes # 1.3 10^3/uL (0.2-0.9); Monocytes % 7.9 %; Neutrophils # 13.34 10^3/uL (1.8-7.7); Nucleated Red Blood Cells % 0 %; Platelet Count 271 10^3/cmm (157-399); Red Blood Count 3.71 10^6/uL (3.85-5.65); Red Cell Distribution Width 12.4 % (12.1-15.1); White Blood Count 16.47 10^3/uL (3.29-11.43)
[2023-10-11 04:43] LABS: Phosphorus 2.2 mg/dL (2.5-4.5)
[2023-10-11 04:45] LABS: Alanine Aminotransferase 26 U/L (0-33); Albumin Level 2.8 g/dL (3.5-5.2); Alkaline Phosphatase 177 U/L (35-105); Anion Gap 16.1 (5-19); Aspartate Amino Transferase 75 U/L (0-32); Blood Urea Nitrogen 6 mg/dL (6-20); Calcium 8.3 mg/dL (8.5-10.5); Carbon Dioxide 21 mmol/L (22-29); Chloride 99 mmol/L (98-107); Globulin 3.2 g/dL (1.3-4.6); Glucose 83 mg/dL (65-115); Osmolality Calculated 273 mOsm/kg (285-295); Potassium 3.1 mmol/L (3.5-5.1); Sodium 133 mmol/L (136-145); Total Bilirubin 0.8 mg/dL (0.15-1.2)
[2023-10-11] MEDS: sodium chloride 0.9% 1,000 ML 125 ML IV ×3 (05:08→22:44)
[2023-10-11] MEDS: folic acid 1 mg Tablet PO (08:58)
[2023-10-11] MEDS: multivitamin therapeutic Tablet 1 TAB PO (08:59)
[2023-10-11] MEDS: thiamine 100 mg Tablet PO (08:59)
[2023-10-11] MEDS: piperacillin-tazobactam 3.375 GM in sodium chloride 0.9% (plus) 50 ML IV ×3 (09:00→23:57)
--- NOTE | 2023-10-11 09:16 | XRR_ITS ---
PROCEDURE INFORMATION: Exam: XR Chest Exam date and time: 10/11/2023 9:28 AM Age: 28 years old Clinical indication: Other: Low o2; Additional info: Soft o2 sat, leukocytosis TECHNIQUE: Imaging protocol: Radiologic exam of the chest. Views: 1 view. COMPARISON: CT abdomen pelvis w con* [id number] 10/07/2023 8:26 PM FINDINGS: Lungs: See Pleural spaces finding. Pleural spaces: Small/moderate left pleural effusion with adjacent atelectasis or infiltrate in the left lower lobe and a minimal similar opacity on the right. Given the patient's age the findings are likely due to pneumonia. Heart/Mediastinum: Unremarkable. No cardiomegaly. Bones/joints: Unremarkable. XR/XR chest 1V portable [id number] IMPRESSION: Bibasilar infiltrates plus left effusion, likely due to pneumonia.
[2023-10-11 09:59] LABS: Lipase 94 U/L (13-60)
[2023-10-11] MEDS: pantoprazole 40 mg SDV IVP ×2 (11:00→22:46)
[2023-10-11] MEDS: lidocaine 1% 5 ML in potassium chloride premix 100 ML 52.5 ML IV (11:00)
--- NOTE | 2023-10-11 13:02 | PM.PN ---
Subjective Subjective: Has had no nausea or vomiting. Has tolerated clear liquids. Abdominal pain is gradually improving. Vitals/I&O/Wt Last Vital Signs Temp 97.3 F L 10/11/23 11:55 Pulse 118 H 10/11/23 11:55 Resp 16 10/11/23 11:55 BP 117/78 10/11/23 11:55 Pulse Ox 90 10/11/23 11:55 O2 Del Method Room Air 10/11/23 11:55 O2 Flow Rate 2 10/09/23 00:00 10/10/23 10/11/23 10/11/23 22:59 06:59 14:59 Intake Total 2515 / 2565 1451.042 / 4016.042 480 / 480 Balance 2515 / 2565 1451.042 / 4016.042 480 / 480 Weight last 48 hrs Weight 86.636 kg Weight 85.91 kg Physical Exam Const: GENERAL APPEARANCE: cooperative ORIENTATION/CONSCIOUSNESS: Yes awake OTHER: Awake initially, was able to fall asleep through the interview. HENMT: COMMON NORMALS: oropharynx normal Neck/C-Spine: COMMON NORMALS: no JVD Resp: COMMON NORMALS: normal respiratory effort and clear to auscultation bilaterally AUSCULTATION: clear to auscultation bilaterally Cardio: COMMON NORMALS: no JVD, regular rhythm, S1 normal heart sound present, S2 normal heart sound present and No murmurs present (Cardio) RHYTHM: regular rhythm HEART SOUNDS: S1 normal heart sound present and S2 normal heart sound present GI: COMMON NORMALS: Normal to inspection, nondistended, normoactive bowel sounds present and Soft to palpation PALPATION: Yes Soft to palpation OTHER: Still present but improving abdominal tenderness. Abdomen soft. Extremity: COMMON NORMALS: no joint enlargement and no pedal edema Data 10/11/23 04:01 10/11/23 04:01 A&P Assessment and plan (1) Acute alcoholic pancreatitis: (2) Alcoholism: (3) Urinary tract infection: Qualifiers: Hematuria presence: with hematuria Urinary tract infection type: acute cystitis Qualified Code(s): N30.01 - Acute cystitis with hematuria (4) Acute kidney injury: (5) Transaminitis: Plan Pancreatitis: Reviewed vitals, CBC, CMP. Noted tachycardia, noted persistent leukocytosis 16.47. Saturation 90%. Obtain chest x-ray. Discussed with case management associate. Reviewed chest x-ray. Pancreatitis appears complicated by pneumonia, bilateral lower lobes. Start Levaquin. Reviewed vitals, CBC, CMP. Reviewed lipase, noted decreasing. Still requiring IV hydromorphone. Continue to taper down as tolerating. Hydrocodone as needed for moderate pain. Continue treatment course abstinence from alcohol. Trial clear liquids. Continue IV PPI. Continue IV fluid. Risk of fluid overload, monitor. Empirically on Zosyn. Risk of C. difficile, monitor. Discussed with case management associate In rounds Consideration given to autoimmune disorder. Patient also has history of psoriasis. Reviewed antibodies, anti-Jo1 negative, anti-SSA negative, anti-SSB negative, anti-SCL 70 negative, anti-dsDNA negative, NT DRYING FRAME OPERATOR/Nova antibody pending. No concerns for gallstones. Triglycerides elevated but less than 500. Pneumonia: Noted on review of chest x-ray. Noted persistent leukocytosis on review of CBC. Sinus tachycardia. Saturation 90%. Monitor oxygenation. Start Levaquin. Sputum culture requested. Urine bacterial antigens. MRSA PCR. Obtain blood culture. Leukocytosis: Most likely in setting of aggressive inflammation from pancreatitis. For now continue with IV antibiotics. Switch from ceftriaxone to Zosyn for now. No blood cultures taken on admission. If patient spikes fever will check blood cultures. Transaminitis/hyperbilirubinemia: In setting of pancreatitis. CT abdomen pelvis negative for gallbladder pathology. ÁNGELA: Reviewed BUN, creatinine ÁNGELA is resolved. Hypophosphatemia:Gradually improving. Hypokalemia: Reviewed magnesium. Reviewed potassium, 3.1. Requested potassium replacement. Follow-up chemistry requested. Iron deficiency anemia. Procalcitonin, vitamin B12, folate level,TSH Ok. Alcohol abuse: [facility] protocol. Urine drug screen positive for amphetamines, benzodiazepines, marijuana. Patient denies drug abuse. Today with some lethargy, mental status changes with acute encephalopathy, possibly alcohol withdrawal versus other substance withdrawal versus pain medication. Monitor. UA concerning for mild UTI. Nitrite positive, leukoesterase positive. Zosyn should cover for UTI. Reviewed urine cultures. 30-40,000 mixed urogenital yuliana. Attestations Medical Necessity Statement*: Continue admission for assessment of management of acute pancreatitis complicated by pneumonia. and High MDM includes amount and/or complexity of data reviewed/ordered [ resulted lab(s)/test(s), ordered lab(s)/test(s) and other healthcare professional discussion] and described risk of complication, morbidity or mortality of management as documented Diagnoses Acute alcoholic pancreatitis K85.20 Alcoholism F10.20 Urinary tract infection N30.01 Hematuria presence: with hematuria Urinary tract infection type: acute cystitis Acute kidney injury N17.9 Transaminitis R74.01
[2023-10-11] MEDS: levofloxacin-dextrose 5 % 750 MG/150 ML PREMIX 100 MG IV (13:25)
[2023-10-11] MEDS: trazodone 50 mg Tablet PO (20:14)
[2023-10-11] MEDS: enoxaparin 40 mg/0.4 mL Syringe SUBCUT (22:46)
[2023-10-12] VITALS (8 sets, daily range): BP systolic 110–127; BP diastolic 70–83; PULSE 110–124; RESP 16–20; TEMP 36.7–37.4; O2SAT 91–95
[2023-10-12] MEDS: LORazepam 2 mg Tablet PO (02:22)
[2023-10-12] MEDS: HYDROcodone-acetaminophen 5-325 mg Tablet 1 TAB PO ×4 (03:09→19:13)
--- NOTE | 2023-10-12 04:32 | PC.NURSE ---
Patient has had a difficult night. She has been up to the shower greater than 10 times and continues to request dilaudid every two to three hours. This nurse answered the patient's call light at 2345 at which time the patient once more requested dilaudid. This nurse later returned with the dilaudid to administer at midnight and found the patient resting in bed comfortably, the patient opened her eyes and began moaning after this nurse entered the room. Dilaudid was administered. She has received multiple doses of hydrocodone as well and also received ativan 2mg PO per CIWA scoring.
[2023-10-12 05:41] LABS: Basophils # 0.1 10^3/uL (0.0-0.1); Basophils % 0.4 %; Eosinophils # 0.2 10^3/uL (0.0-0.8); Hematocrit 35.5 % (36-47); Lymphocytes # 1.7 10^3/uL (0.8-4.8); Lymphocytes % 9.4 %; Mean Corpuscular HGB Conc 33.5 g/dL (30-55); Mean Corpuscular Hemoglobin 32.4 pg (27-33); Mean Corpuscular Volume 96.7 fl (85-98); Mean Platelet Volume 9.2 fL (7.4-10.4); Monocytes # 1.6 10^3/uL (0.2-0.9); Monocytes % 8.9 %; Neutrophils # 13.35 10^3/uL (1.8-7.7); Neutrophils % 75.8 %; Nucleated Red Blood Cells % 0 %; Platelet Count 336 10^3/cmm (157-399); Red Blood Count 3.67 10^6/uL (3.85-5.65); Red Cell Distribution Width 12.5 % (12.1-15.1); White Blood Count 17.63 10^3/uL (3.29-11.43)
[2023-10-12] MEDS: sodium chloride 0.9% 1,000 ML 125 ML IV ×2 (06:02→18:54)
[2023-10-12] MEDS: HYDROmorphone 1 mg/mL INJ 1 mL IVP ×4 (06:02→23:03)
[2023-10-12 06:04] LABS: Alanine Aminotransferase 44 U/L (0-33); Albumin Level 2.7 g/dL (3.5-5.2); Alkaline Phosphatase 215 U/L (35-105); Aspartate Amino Transferase 138 U/L (0-32); Blood Urea Nitrogen 5 mg/dL (6-20); Calcium 8.5 mg/dL (8.5-10.5); Carbon Dioxide 20 mmol/L (22-29); Chloride 101 mmol/L (98-107); Globulin 3.2 g/dL (1.3-4.6); Glucose 81 mg/dL (65-115); Osmolality Calculated 276 mOsm/kg (285-295); Sodium 135 mmol/L (136-145); Total Bilirubin 0.8 mg/dL (0.15-1.2); Total Protein 5.9 g/dL (6.6-8.7)
[2023-10-12 06:09] LABS: Lipase 102 U/L (13-60); Magnesium 1.8 mg/dL (1.7-2.3)
[2023-10-12] MEDS: multivitamin therapeutic Tablet 1 TAB PO (08:20)
[2023-10-12] MEDS: folic acid 1 mg Tablet PO (08:20)
[2023-10-12] MEDS: piperacillin-tazobactam 3.375 GM in sodium chloride 0.9% (plus) 50 ML IV ×2 (08:20→16:21)
[2023-10-12] MEDS: thiamine 100 mg Tablet PO (08:20)
[2023-10-12] MEDS: pantoprazole 40 mg SDV IVP ×2 (10:52→22:19)
[2023-10-12] MEDS: levofloxacin-dextrose 5 % 750 MG/150 ML PREMIX 100 MG IV (12:39)
--- NOTE | 2023-10-12 13:37 | CT_ITS ---
WS: [id number] CT ABDOMEN AND PELVIS WITH CONTRAST HISTORY: pancreatitis, worsened leukocytosis, tachycardia TECHNIQUE: Imaging performed of the abdomen and pelvis with IV contrast. Single phase imaging of the abdomen. Coronal and sagittal reformats are submitted. All CT scans at [facility] use at [address] one of these dose optimization techniques: automated exposure control; mA and/or kV adjustment per patient size (includes targeted exams where dose is matched to clinical indication); or iterative re construction. IV CONTRAST: Omnipaque 350; 100 mL IV. Oral contrast: No DLP: 903.07 mGy.cm COMPARISON: 10/07/2023 Lower thorax: Mild increasing compressive atelectasis at the lung bases. Small bilateral pleural effu sions have also increased in size, LEFT greater than RIGHT. Heart is normal size. Small hiatal hernia . Liver/biliary system: Normal size with no intrahepatic dilatation. Gallbladder: Mild increased attenuation within the gallbladder lumen. No wall thickening. Pancreas: Abnormal appearance of the pancreas. The pancreas is diffusely and normally enhancing. Ther e is no necrosis or hemorrhage at this time. Normal enhancement of the adjacent SMV and portal vein. There is a large amount of edema diffusely surrounding the pancreas which has increased since 10/07/19 24. There is a larger local collection of fluid in the anterior central mesentery measuring 8.4 x 8.8 cm. This is collection is contiguous with the peripancreatic edema and extends anterior and slightly inferior to the main pancreatic body. Although not well localized or liquefied this is probably a de veloping pseudocyst. Spleen: Normal size spleen. No mass or infarct. Adrenal glands: Normal. Right kidney: Normal. Left kidney: Normal. Aorta: Normal. Lymphadenopathy: None. Free fluid: There is additional fluid extending along the paracolic gutters, LEFT greater than RIGHT and a small amount of free fluid in the pelvis. GI tract: Stomach is well distended. Peripancreatic fluid extends to about the greater curvature of t he stomach and also the antrum. There is edema within the antral wall. No obstruction. Abdominal wall: Unremarkable abdominal wall. No hernia. Pelvis: Small amount of free fluid in the pelvis. Bones: Unremarkable. IMPRESSION: 1. Slight increase in the bibasilar compressive atelectasis and small bilateral pleural effusions si nce 10/07/2023. 2. Slight increase in the amount of peripancreatic edema and the fluid collection within the mesente ry. Fluid collection is increased in size now measuring 8.4 x 8.8 cm. This is not well localized but is probably trending towards a pseudocyst. 3. No evidence for pancreatic necrosis or hemorrhage at this time. 4. Small amount of fluid along the paracolic gutters into the pelvis. 5. No bile duct dilatation. 6. Mild soft tissue anasarca.
[2023-10-12] MEDS: enoxaparin 40 mg/0.4 mL Syringe SUBCUT (21:52)
[2023-10-12] MEDS: trazodone 50 mg Tablet PO (21:52)
--- NOTE | 2023-10-12 23:43 | P.PN_ITS ---
Subjective 2 Subjective: Denies additional new symptoms. Pain in the abdomen with some improvement. Vitals/I&O/Wt Last Vital Signs Temp 98.1 F 10/12/23 20:00 Pulse 110 H 10/12/23 20:00 Resp 20 H 10/12/23 23:03 BP 124/83 10/12/23 20:00 Pulse Ox 92 10/12/23 20:00 O2 Del Method Room Air 10/12/23 20:00 O2 Flow Rate 2 10/09/23 00:00 10/12/23 10/12/23 10/13/23 14:59 22:59 06:59 Intake Total 1440 / 1440 50 / 1490 Output Total 600 / 600 300 / 900 Balance 840 / 840 -250 / 590 Weight last 48 hrs Weight 86.636 kg Weight 86.636 kg Physical Exam 2 Const: GENERAL APPEARANCE: cooperative ORIENTATION/CONSCIOUSNESS: Yes awake HENMT: COMMON NORMALS: oropharynx normal Neck/C-Spine: COMMON NORMALS: no JVD Resp: COMMON NORMALS: normal respiratory effort and clear to auscultation bilaterally AUSCULTATION: clear to auscultation bilaterally Cardio: COMMON NORMALS: no JVD, regular rhythm, S1 normal heart sound present, S2 normal heart sound present and No murmurs present (Cardio) RHYTHM: regular rhythm HEART SOUNDS: S1 normal heart sound present and S2 normal heart sound present GI: COMMON NORMALS: Normal to inspection, nondistended, normoactive bowel sounds present, Soft to palpation and non-tender PALPATION: Yes Soft to palpation OTHER: improving abdominal tenderness. Abdomen soft. Extremity: COMMON NORMALS: no joint enlargement and no pedal edema Data 10/12/23 04:53 10/12/23 04:53 Micro: Microbiology 10/11/23 18:35 Bacterial Antigens - Final Urine,Voided 10/11/23 18:35 Legionella Urinary Antigen - Final Urine,Voided A&P Assessment and plan (1) Acute alcoholic pancreatitis: (2) Alcoholism: (3) Urinary tract infection: Qualifiers: Hematuria presence: with hematuria Urinary tract infection type: acute cystitis Qualified Code(s): N30.01 - Acute cystitis with hematuria (4) Acute kidney injury: (5) Transaminitis: Plan Pancreatitis: Reviewed vitals, CBC, CMP. Lipase. Worsening leukocytosis, worsening tachycardia. Worsening lipase this morning. Concern for worsening pancreatitis discussed with her additional assessment with repeat CT scan. She is agreeable. Assess for possible infected pancreatitis. Phlegmon/abscess. Necrotizing pancreatitis. Continue empiric antibiotic coverage with Zosyn. Discussed with case investigator during rounds. Pain slightly better but still requiring IV hydromorphone. Continue treatment course abstinence from alcohol. Trial clear liquids. Continue IV PPI. Continue IV fluid. Risk of fluid overload, monitor. Empirically on Zosyn. Risk of C. difficile, monitor. Discussed with case investigator In rounds Consideration given to autoimmune disorder. Patient also has history of psoriasis. Reviewed antibodies, anti-Jo1 negative, anti-SSA negative, anti-SSB negative, anti-SCL 70 negative, anti-dsDNA negative, NT ELECTRICIAN HELPER AUTOMOTIVE/Nova antibody pending. No concerns for gallstones. Triglycerides elevated but less than 500. Alcohol-induced hepatitis: Reviewed liver parameters, noted T. bili normal, alk phos 215, worsening transaminitis, AST 138, ALT 44. Check INR. Reassess liver parameters. Albumin noted 2.7. Sodium 135, platelets are normal. Check ammonia. Pneumonia: Continue Levaquin, Zosyn. Saturation with some improvement. Noted on review of chest x-ray. Noted persistent leukocytosis on review of CBC. Sinus tachycardia. Saturation 90%. Monitor oxygenation. Start Levaquin. Sputum culture requested. Urine bacterial antigens. MRSA PCR. Obtain blood culture. Leukocytosis: Most likely in setting of aggressive inflammation from pancreatitis. For now continue with IV antibiotics. Switch from ceftriaxone to Zosyn for now. No blood cultures taken on admission. If patient spikes fever will check blood cultures. Transaminitis/hyperbilirubinemia: In setting of pancreatitis. CT abdomen pelvis negative for gallbladder pathology. ÁNGELA: Reviewed BUN, creatinine ÁNGELA is resolved. Hypophosphatemia:Gradually improving. Hypokalemia: Reviewed magnesium. Reviewed potassium, 3.1. Requested potassium replacement. Follow-up chemistry requested. Iron deficiency anemia. Procalcitonin, vitamin B12, folate level,TSH Ok. Alcohol abuse: [facility] protocol. Urine drug screen positive for amphetamines, benzodiazepines, marijuana. Patient denies drug abuse. Today with some lethargy, mental status changes with acute encephalopathy, possibly alcohol withdrawal versus other substance withdrawal versus pain medication. Monitor. UA concerning for mild UTI. Nitrite positive, leukoesterase positive. Zosyn should cover for UTI. Reviewed urine cultures. 30-40,000 mixed urogenital yuliana. Attestations 2 Medical Necessity Statement*: Continue admission for assessment of management of acute pancreatitis complicated by pneumonia. Alcohol induced hepatitis. Diagnoses Acute alcoholic pancreatitis K85.20 Alcoholism F10.20 Urinary tract infection N30.01 Hematuria presence: with hematuria Urinary tract infection type: acute cystitis Acute kidney injury N17.9 Transaminitis R74.01
[2023-10-13] VITALS (12 sets, daily range): BP systolic 117–136; BP diastolic 78–89; PULSE 108–124; RESP 16–19; TEMP 36.8–38.2; O2SAT 92–98
[2023-10-13 00:28] LABS: Ammonia 31 umol/L (11-51)
[2023-10-13] MEDS: piperacillin-tazobactam 3.375 GM in sodium chloride 0.9% (plus) 50 ML IV ×4 (00:32→23:36)
[2023-10-13] MEDS: HYDROcodone-acetaminophen 5-325 mg Tablet 1 TAB PO ×5 (01:33→20:04)
[2023-10-13] MEDS: HYDROmorphone 1 mg/mL INJ 1 mL IVP ×5 (03:13→23:33)
[2023-10-13] MEDS: sodium chloride 0.9% 1,000 ML 125 ML IV ×2 (03:13→12:56)
[2023-10-13 04:16] LABS: Basophils # 0.1 10^3/uL (0.0-0.1); Basophils % 0.5 %; Eosinophils # 0.2 10^3/uL (0.0-0.8); Eosinophils % 0.9 %; Hematocrit 35.2 % (36-47); Lymphocytes # 2.1 10^3/uL (0.8-4.8); Lymphocytes % 10.7 %; Mean Corpuscular HGB Conc 34.7 g/dL (30-55); Mean Corpuscular Volume 95.1 fl (85-98); Mean Platelet Volume 8.9 fL (7.4-10.4); Monocytes # 1.4 10^3/uL (0.2-0.9); Neutrophils # 14.81 10^3/uL (1.8-7.7); Neutrophils % 75.8 %; Nucleated Red Blood Cells % 0 %; Platelet Count 490 10^3/cmm (157-399); Red Cell Distribution Width 12.8 % (12.1-15.1); White Blood Count 19.54 10^3/uL (3.29-11.43)
[2023-10-13 04:29] LABS: INR 1.26 (0.8-1.2)
[2023-10-13 04:37] LABS: Lipase 103 U/L (13-60); Magnesium 1.8 mg/dL (1.7-2.3)
[2023-10-13 04:40] LABS: Alanine Aminotransferase 46 U/L (0-33); Albumin Level 2.9 g/dL (3.5-5.2); Alkaline Phosphatase 246 U/L (35-105); Anion Gap 19.2 (5-19); Aspartate Amino Transferase 98 U/L (0-32); Blood Urea Nitrogen 5 mg/dL (6-20); Calcium 8.9 mg/dL (8.5-10.5); Carbon Dioxide 20 mmol/L (22-29); Chloride 102 mmol/L (98-107); Globulin 2.9 g/dL (1.3-4.6); Glucose 75 mg/dL (65-115); Osmolality Calculated 282 mOsm/kg (285-295); Potassium 3.2 mmol/L (3.5-5.1); Sodium 138 mmol/L (136-145); Total Bilirubin 0.9 mg/dL (0.15-1.2); Total Protein 5.8 g/dL (6.6-8.7)
[2023-10-13 04:55] LABS: Slide Review Slide Review Perform
[2023-10-13] MEDS: multivitamin therapeutic Tablet 1 TAB PO (08:02)
[2023-10-13] MEDS: folic acid 1 mg Tablet PO (08:02)
[2023-10-13] MEDS: thiamine 100 mg Tablet PO (08:02)
[2023-10-13] MEDS: iohexol 350 mg/mL 500 mL Btl (per mL) IV (08:18)
[2023-10-13] MEDS: pantoprazole 40 mg SDV IVP ×2 (11:02→22:08)
[2023-10-13 12:46] LABS: Hepatitis A Antibody IgM Non-Reactive (Nonreactive); Hepatitis B Core IgM Non-Reactive (Nonreactive); Hepatitis B Surface Antigen Non-Reactive (Nonreactive); Hepatitis C Virus Antibody Non-Reactive (Nonreactive)
[2023-10-13] MEDS: levofloxacin-dextrose 5 % 750 MG/150 ML PREMIX 100 MG IV (12:57)
[2023-10-13 14:19] LABS: Methicillin-Resist S.aureu PCR NOT DETECTED (NOT DETECTED)
--- NOTE | 2023-10-13 16:50 | P.PN_ITS ---
Subjective 2 Subjective: Discussed with her concern regarding worsening CBC, tachycardia, but subjectively she says usually is feeling slightly better. Abdominal pain and distention are letting up. She asks to try advancing diet. Vitals/I&O/Wt Last Vital Signs Temp 98.6 F 10/13/23 15:38 Pulse 115 H 10/13/23 15:38 Resp 18 10/13/23 15:38 BP 117/79 10/13/23 15:38 Pulse Ox 96 10/13/23 15:38 O2 Del Method Room Air 10/13/23 15:38 O2 Flow Rate 2 10/09/23 00:00 10/13/23 10/13/23 10/13/23 06:59 14:59 22:59 Intake Total 1050 / 2540 1410 / 1410 150 / 1560 Balance 1050 / 1640 1410 / 1410 150 / 1560 Weight last 48 hrs Weight 87.798 kg Weight 86.636 kg Physical Exam 2 Narrative: Having a visitor. Const: GENERAL APPEARANCE: cooperative ORIENTATION/CONSCIOUSNESS: Yes awake HENMT: COMMON NORMALS: oropharynx normal Neck/C-Spine: COMMON NORMALS: no JVD Resp: COMMON NORMALS: normal respiratory effort and clear to auscultation bilaterally AUSCULTATION: clear to auscultation bilaterally Cardio: COMMON NORMALS: no JVD, regular rhythm, S1 normal heart sound present, S2 normal heart sound present and No murmurs present (Cardio) RHYTHM: regular rhythm HEART SOUNDS: S1 normal heart sound present and S2 normal heart sound present GI: COMMON NORMALS: Normal to inspection, nondistended, normoactive bowel sounds present, Soft to palpation and non-tender PALPATION: Yes Soft to palpation OTHER: improving abdominal tenderness. Abdomen soft. Extremity: COMMON NORMALS: no joint enlargement and no pedal edema Data 10/13/23 03:49 10/13/23 03:49 Micro: Microbiology 10/11/23 18:35 Bacterial Antigens - Final Urine,Voided A&P Assessment and plan (1) Acute alcoholic pancreatitis: (2) Alcoholism: (3) Urinary tract infection: Qualifiers: Hematuria presence: with hematuria Urinary tract infection type: acute cystitis Qualified Code(s): N30.01 - Acute cystitis with hematuria (4) Acute kidney injury: (5) Transaminitis: Plan Pancreatitis: Reviewed vitals, CBC, CMP, lipase, INR noted worsening lipase, worsening WBC, tachycardia. Saturation is improved To 96% on room air. Does concern for worsening pancreatitis. Discussed additional assessment by CT abdomen pelvis which was requested. At the same time subjectively she is feeling somewhat better and does request to try to advance diet, will try. Discussed with nurse outreach case manager, discharge for now is deferred pending additional assessment. Still requiring IV hydromorphone for pain. Continue empiric antibiotic coverage with Zosyn. Discussed with nurse outreach case manager during rounds. Continue treatment course abstinence from alcohol. Trial of regular diet. Continue IV PPI. Continue IV fluid. Risk of fluid overload, monitor. Empirically on Zosyn. Risk of C. difficile, monitor. Discussed with nurse outreach case manager In rounds Consideration given to autoimmune disorder. Patient also has history of psoriasis. Reviewed antibodies, anti-Jo1 negative, anti-SSA negative, anti-SSB negative, anti-SCL 70 negative, anti-dsDNA negative, NT [employer] TECH[employer]IST/Nova antibody pending. No concerns for gallstones. Triglycerides elevated but less than 500. Alcohol-induced hepatitis: Reviewed with primary, transaminitis better today, AST down to 98, ALT down to 46. Reviewed INR. Calculated 90 years Coumadin. Good prognosis. Reviewed ammonia. Reassess liver parameters with alcohol-induced hepatitis. Pneumonia: Continue Levaquin, Zosyn. Saturation with some improvement. Reviewed urine bacterial antigens, negative. Noted on review of chest x-ray. Noted persistent leukocytosis on review of CBC. Sinus tachycardia. Saturation 90%. Monitor oxygenation. Start Levaquin. Sputum culture requested. Urine bacterial antigens. MRSA PCR. Obtain blood culture. Leukocytosis: Most likely in setting of aggressive inflammation from pancreatitis.Pneumonia. For now continue with IV antibiotics. Switch from ceftriaxone to Zosyn for now. Transaminitis/hyperbilirubinemia: In setting of pancreatitis. CT abdomen pelvis negative for gallbladder pathology. ÁNGELA: Reviewed BUN, creatinine ÁNGELA is resolved. Hypophosphatemia:Gradually improving. Hypokalemia: Reviewed magnesium. Reviewed potassium, 3.1. Requested potassium replacement. Follow-up chemistry requested. Iron deficiency anemia. Procalcitonin, vitamin B12, folate level,TSH Ok. Alcohol abuse: [facility] protocol. Urine drug screen positive for amphetamines, benzodiazepines, marijuana. Patient denies drug abuse. Today with some lethargy, mental status changes with acute encephalopathy, possibly alcohol withdrawal versus other substance withdrawal versus pain medication. Monitor. UA concerning for mild UTI. Nitrite positive, leukoesterase positive. Zosyn should cover for UTI. Reviewed urine cultures. 30-40,000 mixed urogenital yuliana. Attestations 2 Medical Necessity Statement*: Continue admission for assessment and management of acute pancreatitis complicated by pneumonia. Alcohol induced hepatitis. Diagnoses Acute alcoholic pancreatitis K85.20 Alcoholism F10.20 Urinary tract infection N30.01 Hematuria presence: with hematuria Urinary tract infection type: acute cystitis Acute kidney injury N17.9 Transaminitis R74.01
[2023-10-13] MEDS: trazodone 50 mg Tablet PO (20:04)
[2023-10-13] MEDS: sodium chloride 0.9% 1,000 ML 75 ML IV (20:40)
[2023-10-13] MEDS: enoxaparin 40 mg/0.4 mL Syringe SUBCUT (22:08)
[2023-10-14] VITALS (10 sets, daily range): BP systolic 123–133; BP diastolic 79–90; PULSE 95–118; RESP 16–20; TEMP 36.3–37.1; O2SAT 93–96; BMI 35.4
[2023-10-14] MEDS: HYDROcodone-acetaminophen 5-325 mg Tablet 1 TAB PO ×4 (01:22→18:16)
[2023-10-14] MEDS: HYDROmorphone 1 mg/mL INJ 1 mL IVP ×3 (03:27→14:06)
[2023-10-14 05:12] LABS: Basophils # 0.1 10^3/uL (0.0-0.1); Basophils % 0.6 %; Eosinophils # 0.3 10^3/uL (0.0-0.8); Eosinophils % 1.3 %; Hematocrit 34.6 % (36-47); Lymphocytes # 2.1 10^3/uL (0.8-4.8); Lymphocytes % 10.9 %; Mean Corpuscular HGB Conc 33.8 g/dL (30-55); Mean Corpuscular Hemoglobin 32.3 pg (27-33); Mean Corpuscular Volume 95.6 fl (85-98); Monocytes # 1.2 10^3/uL (0.2-0.9); Monocytes % 6.2 %; Neutrophils # 14.41 10^3/uL (1.8-7.7); Neutrophils % 75.4 %; Nucleated Red Blood Cells % 0 %; Platelet Count 493 10^3/cmm (157-399); Red Blood Count 3.62 10^6/uL (3.85-5.65); Red Cell Distribution Width 12.9 % (12.1-15.1); White Blood Count 19.11 10^3/uL (3.29-11.43)
[2023-10-14 05:31] LABS: Alanine Aminotransferase 46 U/L (0-33); Albumin Level 2.6 g/dL (3.5-5.2); Alkaline Phosphatase 241 U/L (35-105); Anion Gap 15.9 (5-19); Aspartate Amino Transferase 80 U/L (0-32); Blood Urea Nitrogen 4 mg/dL (6-20); Calcium 8.5 mg/dL (8.5-10.5); Carbon Dioxide 22 mmol/L (22-29); Chloride 101 mmol/L (98-107); Globulin 3.3 g/dL (1.3-4.6); Glomerular Filtration Rate 119.9 mL/min (90-130); Glucose 78 mg/dL (65-115); Osmolality Calculated 278 mOsm/kg (285-295); Sodium 136 mmol/L (136-145); Total Bilirubin 0.6 mg/dL (0.15-1.2); Total Protein 5.9 g/dL (6.6-8.7)
[2023-10-14 05:45] LABS: Magnesium 1.8 mg/dL (1.7-2.3)
[2023-10-14 05:53] LABS: Potassium 2.9 mmol/L (3.5-5.1)
[2023-10-14] MEDS: lidocaine 1% 5 ML in potassium chloride premix 100 ML 26.25 ML IV (08:58)
[2023-10-14] MEDS: sodium chloride 0.9% 1,000 ML 75 ML IV (08:59)
[2023-10-14] MEDS: folic acid 1 mg Tablet PO (09:00)
[2023-10-14] MEDS: thiamine 100 mg Tablet PO (09:00)
[2023-10-14] MEDS: multivitamin therapeutic Tablet 1 TAB PO (09:00)
[2023-10-14 10:27] LABS: Lipase 98 U/L (13-60)
[2023-10-14] MEDS: pantoprazole 40 mg SDV IVP (12:18)
[2023-10-14] MEDS: levofloxacin-dextrose 5 % 750 MG/150 ML PREMIX 100 MG IV (14:04)
[2023-10-14] MEDS: piperacillin-tazobactam 3.375 GM in sodium chloride 0.9% (plus) 50 ML IV (16:39)
--- NOTE | 2023-10-14 17:29 | PM.PN ---
Subjective Subjective: Was still having some upper abdominal pain today. No additional changes. Tolerating oral intake. We discussed with her regarding peripancreatic fluid collection. Vitals/I&O/Wt Last Vital Signs Temp 97.4 F L 10/14/23 16:00 Pulse 95 10/14/23 16:00 Resp 20 H 10/14/23 16:00 BP 123/86 10/14/23 16:00 Pulse Ox 96 10/14/23 16:00 O2 Del Method Room Air 10/14/23 16:00 O2 Flow Rate 2 10/09/23 00:00 10/14/23 10/14/23 10/14/23 06:59 14:59 22:59 Intake Total 50 / 2780 1748.75 / 1748.75 150 / 1898.75 Balance 50 / 2780 1748.75 / 1748.75 150 / 1898.75 Weight last 48 hrs Weight 87.798 kg Weight 87.798 kg Physical Exam Const: GENERAL APPEARANCE: cooperative ORIENTATION/CONSCIOUSNESS: Yes awake OTHER: Awake initially, was able to fall asleep through the interview. HENMT: COMMON NORMALS: oropharynx normal Neck/C-Spine: COMMON NORMALS: no JVD Resp: COMMON NORMALS: normal respiratory effort and clear to auscultation bilaterally AUSCULTATION: clear to auscultation bilaterally Cardio: COMMON NORMALS: no JVD, regular rhythm, S1 normal heart sound present, S2 normal heart sound present and No murmurs present (Cardio) RHYTHM: regular rhythm HEART SOUNDS: S1 normal heart sound present and S2 normal heart sound present GI: COMMON NORMALS: Normal to inspection, nondistended, normoactive bowel sounds present, Soft to palpation and non-tender PALPATION: Yes Soft to palpation OTHER: Epigastric tenderness. Abdomen soft. Extremity: COMMON NORMALS: no joint enlargement and no pedal edema Data 10/14/23 04:39 10/14/23 04:39 A&P Assessment and plan (1) Acute alcoholic pancreatitis: (2) Alcoholism: (3) Urinary tract infection: Qualifiers: Hematuria presence: with hematuria Urinary tract infection type: acute cystitis Qualified Code(s): N30.01 - Acute cystitis with hematuria (4) Acute kidney injury: (5) Transaminitis: Plan Pancreatitis: Unimproved. Reviewed vitals, CBC, noted worsened WBC. Reviewed CMP. Replace hypokalemia. Reviewed liver parameters. Reviewed heart rates, still tachycardic, but slightly better. Leukocytosis without improvement but without worsening today. Still having epigastric pain, requiring IV Dilaudid. Discussed with her fluid collection, consideration of aspiration to assess for infection, although she overall has been gradually improving. Leukocytosis today plateaued. Continue empiric antibiotic coverage with Zosyn, vancomycin. Discussed with correctional casework specialist during rounds. Continue treatment course abstinence from alcohol. Trial of regular diet. Continue IV PPI. Continue IV fluid. Risk of fluid overload, monitor. Empirically on Zosyn. Risk of C. difficile, monitor. Discussed with correctional casework specialist In rounds Consideration given to autoimmune disorder. Patient also has history of psoriasis. Reviewed antibodies, anti-Jo1 negative, anti-SSA negative, anti-SSB negative, anti-SCL 70 negative, anti-dsDNA negative, [employer] ASSIST[employer]/Nova antibody pending. No concerns for gallstones. Triglycerides elevated but less than 500. Alcohol-induced hepatitis: Gradually improving. Noted improving transaminitis. Reassess liver parameters. Hypokalemia: Replace. Recheck potassium. Pneumonia: Continue Levaquin, Zosyn. Saturation with some improvement. Reviewed urine bacterial antigens, negative. Noted on review of chest x-ray. Noted persistent leukocytosis on review of CBC. Sinus tachycardia. Saturation 90%. Monitor oxygenation. Start Levaquin. Sputum culture requested. Urine bacterial antigens. MRSA PCR. Obtain blood culture. Leukocytosis: Most likely in setting of aggressive inflammation from pancreatitis.Pneumonia. For now continue with IV antibiotics. Switch from ceftriaxone to Zosyn for now. Transaminitis/hyperbilirubinemia: In setting of pancreatitis. CT abdomen pelvis negative for gallbladder pathology. ÁNGELA: Reviewed BUN, creatinine ÁNGELA is resolved. Hypophosphatemia:Gradually improving. Iron deficiency anemia. Procalcitonin, vitamin B12, folate level,TSH Ok. Alcohol abuse: [facility] protocol. Urine drug screen positive for amphetamines, benzodiazepines, marijuana. Patient denies drug abuse. Today with some lethargy, mental status changes with acute encephalopathy, possibly alcohol withdrawal versus other substance withdrawal versus pain medication. Monitor. UA concerning for mild UTI. Nitrite positive, leukoesterase positive. Zosyn should cover for UTI. Reviewed urine cultures. 30-40,000 mixed urogenital yuliana. Attestations Medical Necessity Statement*: Continue admission for assessment and management of acute pancreatitis complicated by pneumonia. Alcohol induced hepatitis. and High MDM includes number and complexity of problems actively addressed during encounter and described risk of complication, morbidity or mortality of management as documented Diagnoses Acute alcoholic pancreatitis K85.20 Alcoholism F10.20 Urinary tract infection N30.01 Hematuria presence: with hematuria Urinary tract infection type: acute cystitis Acute kidney injury N17.9 Transaminitis R74.01
--- NOTE | 2023-10-14 18:40 | P.DS_ITS ---
Discharge Providers Date of Admission: 10/07/23 21:34 Date of Discharge: October 14, 2023 Attending Provider at Admission: Michael Hearn MD Attending Provider at Discharge: Misael Desir Primary Care Provider: Christoph Chapman MD Diagnoses at Discharge Discharge Diagnosis (1) Acute alcoholic pancreatitis: Status: Acute (2) Alcoholism: Status: Acute (3) Urinary tract infection: Status: Acute Qualifiers: Hematuria presence: with hematuria Urinary tract infection type: acute cystitis Qualified Code(s): N30.01 - Acute cystitis with hematuria (4) Acute kidney injury: Status: Acute (5) Transaminitis: Status: Acute Reason for Visit Reason for Visit: abd pain Brief History: Yara Rodriguez is a 28 year old female with a past medical history of de pression, who presents to [facility] for a 48-hour history of nausea, vomiting, abdominal bloating, poor appetite. 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 Pancreas with peripancreatic edema, fluid, fluid extending through the remainder of the abdomen. Small bilateral pleural effusions. Bibasilar atelectasis versus infiltrate. Hepatic steatosis. Triglycerides were checked and were abnormal at 267 but not to the point of causing pancreatitis. No hypercalcemia. On presentation also with finding suggestive of possible UTI, started on empiric antibiotic treatment with Zosyn. Urine culture ultimately unrevealing. During hospitalization concern for withdrawal with waxing and waning mental status, intermittent behavioral outbursts reported, was monitored and treated with CIWA protocol with benzodiazepines. Given thiamine, folic acid, multivitamins. Giurgius eventually improved. During hospitalization also developed worsening oxygen saturation, worsening chest x-ray findings with infiltrates plus effusion, suspected pneumonia, with worsening leukocytosis, sinus tachycardia, possible sepsis, antibiotic was broadened with Levaquin. Abdominal pain gradually improving. She was counseled on abstinence from any alcohol, and to avoid any possible substance use. Confirmatory testing was obtained on admission and pending. Lipase was initially downtrending but progress plateaued. Leukocytosis with worsening up to 19,000. Sinus tachycardia 100 and teens. Initially on bowel rest, but with improving symptoms requested oral intake and tolerated diet upgrade without issues. Lipase improvement with some stalled progress with worsening SIRS reassessed with CT abdomen pelvis, discussed with her finding of slight increase in peripancreatic edema, as well as fluid collection increased in size measuring 8.4 x 8.8. Possibly trending towards pseudocyst, but with other SIRS findings discussed with her consideration did not exclude infection. Continued on antibiotics. Per discussion with radiology could not aspirate here, as discussed with her in case of further worsening would need transfer to outside facility for additional assessment management for possible infected pancreatitis, sepsis. Today white blood cell count plateaued at 19,000, pulse with some improvement into the 90s, although still SIRS criteria sitting up. Possible sepsis. Oxygenation overall with improvement saturating well on room air. Today she decided to leave the hospital AGAINST MEDICAL ADVICE, discussed with her premature discharge, risk of possibly partially treated potentially disabling and/or life-threatening condition, she verbalized understanding. We are giving her prescription for Levaquin and Flagyl to continue after discharge, but she understands there is no guarantee that these antibiotics may provide coverage for potential underlying condition. Discussed with her on the phone as she had already left the floor with her significant other. She states intends to return to the hospital in case of any sort of worsening. She is returning to case picker her discharge paperwork and prescriptions. Physical Exam Narrative: Please see exam from earlier today. Discharge Data Studies Completed and Pending Completed Studies During Hospitalization Category Date Time Status CT abdomen pelvis w con* [id number] Routine Cat Scan 10/12/23 13:[address] abdomen pelvis w con* [id number] Stat Cat Scan 10/07/23 20:03 Completed CXRP [XR chest 1V portable [id number]] Routine Exams 10/11/23 09:16 Completed Pending at discharge Category Date Time Status Blood Culture Stat Lab 10/13/23 09:08 Ordered Blood Cultures ([facility]) Routine Lab 10/11/23 14:02 Received Blood Cultures ([facility]) Routine Lab 10/11/23 14:05 Received Blood Cultures ([facility]) Routine Lab 10/13/23 11:47 Received Complete Blood Count w/Auto AM LABS Lab 10/15/23 04:00 Ordered Comprehensive Metabolic Panel AM LABS Lab 10/15/23 04:00 Ordered Drug Screen Serum [Serum Drug Panel 7] Routine Lab 10/07/23 22:39 Received Magnesium AM LABS Lab 10/15/23 04:00 Ordered [facility] EVELIA Profile Routine Lab 10/08/23 12:13 Results Sputum Culture and Gram Stain Routine Lab 10/11/23 13:04 Uncollected Radiology Impressions Chest X-Ray 10/11/23 09:16 IMPRESSION: Bibasilar infiltrates plus left effusion, likely due to pneumonia. Laboratory Results WBC 19.11 10^3/uL (3.29-11.43) H 10/14/23 04:39 RBC 3.62 10^6/uL (3.85-5.65) L 10/14/23 04:39 Hgb 11.70 g/dL (11.27-16.99) 10/14/23 04:39 Hct 34.6 % (36-47) L 10/14/23 04:39 MCV 95.6 fl (85-98) 10/14/23 04:39 MCH 32.3 pg (27-33) 10/14/23 04:39 MCHC 33.8 g/dL (30-55) 10/14/23 04:39 RDW 12.9 % (12.1-15.1) 10/14/23 04:39 Plt Count 493 10^3/cmm (157-399) H 10/14/23 04:39 MPV 9.0 fL (7.4-10.4) 10/14/23 04:39 Neut % (Auto) 75.4 % 10/14/23 04:39 Lymph % (Auto) 10.9 % 10/14/23 04:39 Mathews % (Auto) 6.2 % 10/14/23 04:39 Eos % (Auto) 1.3 % 10/14/23 04:39 Baso % (Auto) 0.6 % 10/14/23 04:39 Neut # (Auto) 14.41 10^3/uL (1.8-7.7) H 10/14/23 04:39 Lymph # (Auto) 2.1 10^3/uL (0.8-4.8) 10/14/23 04:39 Mathews # (Auto) 1.2 10^3/uL (0.2-0.9) H 10/14/23 04:39 Eos # (Auto) 0.3 10^3/uL (0.0-0.8) 10/14/23 04:39 Baso # (Auto) 0.1 10^3/uL (0.0-0.1) 10/14/23 04:39 Nucleated RBC % (auto) 0 % 10/14/23 04:39 Nucleated RBCs # 0.0 /100WBC 10/14/23 04:39 PT 16.20 SECONDS (12.1-14.9) H 10/13/23 03:49 INR 1.26 (0.8-1.2) H 10/13/23 03:49 Sodium 136 mmol/L (136-145) 10/14/23 04:39 Potassium 2.9 mmol/L (3.5-5.1) L 10/14/23 04:39 Chloride 101 mmol/L (98-107) 10/14/23 04:39 Carbon Dioxide 22 mmol/L (22-29) 10/14/23 04:39 Anion Gap 15.9 (5-19) 10/14/23 04:39 BUN 4 mg/dL (6-20) L 10/14/23 04:39 Creatinine 0.6 mg/dL (0.5-0.9) 10/14/23 04:39 GFR Calculation 119.9 mL/min (90-130) 10/14/23 04:39 Glucose 78 mg/dL (65-115) 10/14/23 04:39 Estimat Average Glucose 105 10/07/23 19:34 Hemoglobin A1c 5.3 % (4.0-6.0) 10/07/23 19:34 Calculated Osmolality 278 mOsm/kg (285-295) L 10/14/23 04:39 Lactic Acid 1.9 mmol/L (0.5-2.2) 10/07/23 19:34 Calcium 8.5 mg/dL (8.5-10.5) 10/14/23 04:39 Phosphorus 2.2 mg/dL (2.5-4.5) L 10/11/23 04:01 Magnesium 1.8 mg/dL (1.7-2.3) 10/14/23 04:39 Iron 16 ug/dL (37-145) L 10/08/23 12:13 TIBC 185 mcg/dl 10/08/23 12:13 % Saturation 8.6 % (20-50) L 10/08/23 12:13 Unsat Iron Binding 169 ug/dL (112-347) 10/08/23 12:13 Total Bilirubin 0.6 mg/dL (0.15-1.2) 10/14/23 04:39 AST 80 U/L (0-32) H 10/14/23 04:39 ALT 46 U/L (0-33) H 10/14/23 04:39 Alkaline Phosphatase 241 U/L (35-105) H 10/14/23 04:39 Ammonia 31 umol/L (11-51) 10/12/23 00:02 Troponin T Baseline < 6 ng/L (0-10) 10/07/23 19:34 Troponin T 120 Minute 6.00 ng/L (0-10) 10/08/23 00:50 Delta Troponin T 0.12371 ABS# (0-10) 10/08/23 00:50 Troponin T Hi Sens 6Hr 6.00 ng/L (0-10) 10/08/23 05:45 Troponin T Hi Sens 6Hr Delta 0 ng/L (0-12) 10/08/23 05:45 C-Reactive Protein 358.4 mg/L (0.0-4.9) H 10/07/23 19:34 Total Protein 5.9 g/dL (6.6-8.7) L 10/14/23 04:39 Albumin 2.6 g/dL (3.5-5.2) L 10/14/23 04:39 Globulin 3.3 g/dL (1.3-4.6) 10/14/23 04:39 Triglycerides 267 mg/dL (0-150) H 10/07/23 19:34 Cholesterol 168 mg/dL (0-200) 10/07/23 19:34 LDL Cholesterol, Calc 89 mg/dL (50-129) 10/07/23 19:34 HDL Cholesterol 26 mg/dL (60-100) L 10/07/23 19:34 LDL/HDL Ratio 3.42 RATIO (0.00-3.22) H 10/07/23 19:34 Cholesterol/HDL Ratio 6.46 mg/dL (0.0-4.40) H 10/07/23 19:34 Lipase 98 U/L (13-60) H 10/14/23 04:39 Vitamin B12 1087 pg/mL (232-1245) 10/08/23 12:13 Folate 7.2 ng/mL (4.8-37.3) 10/09/23 04:14 Procalcitonin 0.54 ng/mL (0-0.5) H 10/08/23 12:13 TSH Cancelled 10/08/23 12:13 HCG, Qual Negative (Negative) 10/07/23 19:37 Urine Color Sunita (Yellow) 10/07/23 19:37 Urine Appearance Cloudy (CLEAR) A 10/07/23 19:37 Urine pH 5 (5-7) 10/07/23 19:37 Ur Specific [place] 1.025 (1.005-1.030) 10/07/23 19:37 Urine Protein 2+ (Negative) H 10/07/23 19:37 Urine Glucose (UA) Norm (Normal) 10/07/23 19:37 Urine Ketones 1+ (Negative) H 10/07/23 19:37 Urine Blood 3+ (Negative) H 10/07/23 19:37 Urine Nitrate Positive (Negative) H 10/07/23 19:37 Urine Bilirubin 2+ (Negative) H 10/07/23 19:37 Urine Urobilinogen 4 mg/dL (Negative) H 10/07/23 19:37 Ur Leukocyte Esterase 1+ (Negative) H 10/07/23 19:37 Urine RBC 15-25 /hpf (0-2) H 10/07/23 19:37 Urine WBC 15-25 /hpf (0-5) H 10/07/23 19:37 Ur Squamous Epith Cells 5-10 /hpf (0-5) H 10/07/23 19:37 Amorphous Sediment Trace /hpf 10/07/23 19:37 Urine Bacteria 2+ /hpf (NONE) H 10/07/23 19:37 Hyaline Casts 0-4 /lpf H 10/07/23 19:37 Fine Granular Casts 0-4 /lpf H 10/07/23 19:37 Coarse Granular Casts 0-4 /lpf H 10/07/23 19:37 Urine Opiates Screen Negative ng/mL (Negative) 10/07/23 19:32 Ur Barbiturates Screen Negative ng/mL (Negative) 10/07/23 19:32 Ur Phencyclidine Scrn Negative ng/mL (Negative) 10/07/23 19:32 Ur Amphetamines Screen Positive ng/mL (Negative) H 10/07/23 19:32 U Benzodiazepines Scrn Positive ng/mL (Negative) H 10/07/23 19:32 Urine Cocaine Screen Negative ng/mL (Negative) 10/07/23 19:32 U Marijuana (THC) Screen Positive ng/mL (Negative) H 10/07/23 19:32 Ethyl Alcohol < 10 mg/dL (0-10) 10/07/23 19:34 BRUNA-1 Antibody <1.0 neg AI (<1.0 NEG) 10/08/23 12:13 SS-A/Ro IgG Antibody <1.0 neg AI (<1.0 NEG) 10/08/23 12:13 SS-B/La IgG Antibody <1.0 neg AI (<1.0 NEG) 10/08/23 12:13 Scl-70 Scleroderma Ab <1.0 neg AI (<1.0 NEG) 10/08/23 12:13 Anti-ds DNA IgG Ab <1 IU/mL 10/08/23 12:13 Hepatitis A IgM Ab Non-reactive (Nonreactive) 10/13/23 11:47 Hep Bs Antigen Non-reactive (Nonreactive) 10/13/23 11:47 Hep B Core IgM Ab Non-reactive (Nonreactive) 10/13/23 11:47 Hepatitis C Antibody Non-reactive (Nonreactive) 10/13/23 11:47 MRSA (PCR) Not detected (NOT DETECTED) 10/12/23 13:22 Vitals Last Vital Signs Temp 97.4 F L 10/14/23 16:00 Pulse 95 10/14/23 16:00 Resp 20 H 10/14/23 16:00 BP 123/86 10/14/23 16:00 Pulse Ox 96 10/14/23 16:00 O2 Del Method Room Air 10/14/23 16:00 O2 Flow Rate 2 10/09/23 00:00 Discharge Plan Discharge Patient Disposition: Left Against Medical Advice Condition: Serious Prescriptions: New folic acid 1 mg Tablet 1 mg PO DAILY Qty: 90 0RF levofloxacin 750 mg tablet 750 mg PO DAILY Qty: 7 0RF multivitamin with folic acid [Thera] 400 mcg Tablet 1 tab PO DAILY Qty: 90 0RF thiamine mononitrate (vit B1) [Vitamin B-1 (mononitrate)] 100 mg Tablet 100 mg PO DAILY Qty: 90 0RF metronidazole 500 mg tablet 500 mg PO TID Qty: 21 0RF Continued prenat.vits,pablo,ezw-svlp-oamyu Tablet 1 tab PO DAILY trazodone 50 mg tablet 50 mg PO BEDTIME Referrals: Christoph Chapman MD [Primary Care Provider] - 1-3 days Patient Instructions: Pancreatitis (GEN), Potassium Content of Foods List (GEN), Hypokalemia (GEN), At-Risk Alcohol Use (GEN), Against Medical Advice (DC) Activity Restrictions/Additional Instructions: Please note you are leaving the hospital prematurely before all assessment and treatment could be completed. You may be leaving a potentially serious condition and given concern for possible undiagnosed infection pending additional reassessment. You are encouraged to stay and continue hospitalization, otherwise return to the hospital at any time especially for any worsening occurs. Otherwise follow-up with your primary doctor as soon as possible. Please discuss collection around the pancreas after pancreatitis. Elevated white blood cell count, fast heart rate, concern for underlying infection, possible sepsis. Again this may be potentially disabling and/or life-threatening conditions. Follow-up with your primary provider for reassessment after pancreatitis. Abstain from any alcohol use which may lead to recurrence of pancreatitis even in small amounts. Abstain from any recreational or illicit substance use due to risk of severe, disabling or potentially life-threatening adverse effects. Follow-up with your primary doctor for reassessment after alcohol related hepatitis to confirm continued improvement/resolution. Complete antibiotic course for pneumonia. Follow-up with your primary doctor for reassessment for recovery from pneumonia. Add foods rich in potassium, you received potassium supplementation due to mildly decreased level in the hospital. Have your primary doctor follow-up your electrolytes. Follow-up with your primary doctor for reassessment of kidney function after res olution of kidney injury. Follow-up with the primary doctor for iron deficiency anemia. Discharge Attestations Time Spent in Discharge Care*: greater than 30 min Quality Metrics Clinical Quality Measures [ No reported AMI, CVA or VTE this stay] Coding Level of Care Code 42520 Total time (in minutes) for Discharge: 50 Diagnoses Acute alcoholic pancreatitis K85.20 Alcoholism F10.20 Urinary tract infection N30.01 Hematuria presence: with hematuria Urinary tract infection type: acute cystitis Acute kidney injury N17.9 Transaminitis R74.01
--- NOTE | 2023-10-14 19:15 | PC.NURSE ---
At approximatly 1735 pt stated she wanted to leave AMA. This nurse was able to educate pt and explain the importance of staying in the hospital d/t wbc elevated and tachycardia has not improved. Pt verbalized understanding and stated she would stay. Pt boyfriend came in at aproximatly 1821 and pt stated she had decided to leave AMA and understood the risk and consequences of leaving. Dr. Desir made aware and discharge orders reviewed with pt. Understanding verbalized.
[2023-10-15 12:10] LABS: Amphetamine negative; Barbiturates negative; Benzodiazepines negative; Cocaine Metabolites negative; Marijuana(Tetrahydrocannabino) negative; Opiates negative; PCP (Phencyclidine) negative
[2023-10-19 15:00] LABS: SM/RNP Antibodies <1.0 NEG
== END 2023-10-14 19:21 | disposition left against medical advice (07) | DRG 438 ==
LOC: ER 21:34 → MEDSURG 21:46
PROVIDERS: Student in an Organized Health Care Education/Training Program; Admitting Provider Family Medicine; Emergency Provider Emergency Medicine; PCP Family Medicine Adult Medicine; Visit Provider Internal Medicine
DX: K85.20 Alcohol induced acute pancreatitis without necrosis or infection (principal); J18.9 Pneumonia, unspecified organism; E87.1 Hypo-osmolality and hyponatremia; E87.20 Acidosis, unspecified; G93.40 Encephalopathy, unspecified; N17.9 Acute kidney failure, unspecified; F10.20 Alcohol dependence, uncomplicated; G47.00 Insomnia, unspecified; F17.210 Nicotine dependence, cigarettes, uncomplicated; F32.A Depression, unspecified; L40.0 Psoriasis vulgaris; E86.0 Dehydration; D50.9 Iron deficiency anemia, unspecified; E83.39 Other disorders of phosphorus metabolism; E87.6 Hypokalemia; K70.10 Alcoholic hepatitis without ascites; F15.10 Other stimulant abuse, uncomplicated; Z53.29 Procedure and treatment not carried out because of patient's decision for other reasons
CPT/HCPCS: 36415; 71045; 74177; 80053; 80061; 80074; 80306; 80307; 81001; 81025; 82140; 82607; 82746; 83036; 83540; 83550; 83605; 83690; 83735; 84100; 84145; 84443; 84484; 85025; 85610; 86140; 86225; 86235; 86403; 87040; 87086; 87449; 87641; 93005; 94664; 96365; 96372; 96375; 99285; C9113; J0696; J1170; J1650; J1885; J1956; J2270; J2405; J2543; J3411; J3480; J7030; Q9967

== ENCOUNTER 2024-03-06 10:11 | Inpatient (IN) | payer BC, MEDICAID, SELFPAY ==
[2024-03-06] VITALS (12 sets, daily range): BP systolic 124–135; BP diastolic 83–92; PULSE 68–88; RESP 16–20; TEMP 36.3–36.8; O2SAT 96–99; BMI 31.1
[2024-03-06 10:59] LABS: Basophils % 0.4 %; Eosinophils # 0.1 10^3/uL (0.0-0.8); Eosinophils % 1.6 %; Hematocrit 46.8 % (36-47); Lymphocytes # 1.8 10^3/uL (0.8-4.8); Lymphocytes % 23.6 %; Mean Corpuscular HGB Conc 34.6 g/dL (30-55); Mean Corpuscular Hemoglobin 31.3 pg (27-33); Mean Corpuscular Volume 90.3 fl (85-98); Mean Platelet Volume 8.5 fL (7.4-10.4); Monocytes # 0.4 10^3/uL (0.2-0.9); Monocytes % 4.6 %; Neutrophils # 5.31 10^3/uL (1.8-7.7); Neutrophils % 69.5 %; Nucleated Red Blood Cells % 0 %; Platelet Count 298 10^3/cmm (157-399); Red Blood Count 5.18 10^6/uL (3.85-5.65); Red Cell Distribution Width 12.9 % (12.1-15.1); White Blood Count 7.63 10^3/uL (3.29-11.43)
[2024-03-06 11:18] LABS: Alanine Aminotransferase 77 U/L (0-33); Albumin Level 4.2 g/dL (3.5-5.2); Alkaline Phosphatase 125 U/L (35-105); Anion Gap 15.6 (5-19); Aspartate Amino Transferase 73 U/L (0-32); Blood Urea Nitrogen 10 mg/dL (6-20); C Reactive Protein 8.9 mg/L (0.0-4.9); Calcium 9.3 mg/dL (8.5-10.5); Carbon Dioxide 23 mmol/L (22-29); Chloride 103 mmol/L (98-107); Creatinine Clr Calc Pharmacy 116.0688; Globulin 3.4 g/dL (1.3-4.6); Glomerular Filtration Rate 100.4 mL/min (90-130); Glucose 129 mg/dL (65-115); Osmolality Calculated 287 mOsm/kg (285-295); Potassium 3.6 mmol/L (3.5-5.1); Sodium 138 mmol/L (136-145); Total Bilirubin 0.5 mg/dL (0.15-1.2); Total Protein 7.6 g/dL (6.6-8.7)
[2024-03-06 11:20] LABS: Lactic Sepsis W/Reflex 1.6 mmol/L (0.5-2.2)
[2024-03-06 11:32] LABS: Lipase 1040 U/L (13-60)
[2024-03-06 11:45] LABS: HCG Qualitative Urine. Negative (Negative)
--- NOTE | 2024-03-06 11:47 | CT_ITS ---
WS: [id number] CT ABDOMEN PELVIS TECHNIQUE: Contrast-enhanced CT of the abdomen and pelvis with coronal and sagittal reformatted image s. CLINICAL INFORMATION: Pancreatitis COMPARISON: 10/13/2023 DLP: 635.[address] scans at [facility] use at least one of these dose optimization techniques: automated e xposure control; mA and/or kV adjustment per patient size (includes targeted exams where dose is matc hed to clinical indication); or iterative reconstruction. FINDINGS: Evidence of pancreatitis with peripancreatic fluid collections. Inflammatory changes have improved co mpared to previous. Dorsal pancreatic pseudocyst has developed in the interim measuring approximately 3.9 x 2.9 cm. Small adjacent pseudocyst measuring 2.5 cm. Portal vein and splenic vein are patent. S MV is patent. Normal celiac and SMA. Normal pancreatic parenchymal enhancement. Additional small area s of peripancreatic fluid and developing pseudocysts. Small amount of fluid extends into the zully he patis. Hepatomegaly. Diffuse fatty infiltration of the liver. Normal spleen. Lung bases are well aerated. Sm all esophageal hiatal hernia. Air-fluid level in the stomach. Adrenal glands are normal. Normal renal parenchymal enhancement. No hydronephrosis. Normal caliber abdominal aorta. Multi follicular ovaries bilaterally. Normal sigmoid colon. Prior appendectomy. Small fat-containing umbilical hernia. CT/CT abdomen pelvis w con* [id number] IMPRESSION: 1. Peripancreatic fluid with new dorsal peripancreatic pseudocysts described a sara. 2. Persistent but improved findings of acute pancreatitis with peripancreatic fluid. Smaller developing pseudocyst along the pancreatic tail. 3. No hydronephrosis in either kidney. 4. Diffuse fatty infiltration of liver. 5. Small esophageal hiatal hernia. 6. No other significant changes.
[2024-03-06] MEDS: HYDROmorphone 1 mg/mL INJ 1 mL IVP (11:56)
[2024-03-06] MEDS: ondansetron 2 mg/ML SDV 2 mL 8 MG IVP (11:56)
[2024-03-06] MEDS: sodium chloride 0.9% 1,000 ML 999 ML IV ×2 (11:57→13:16)
[2024-03-06 12:04] LABS: Bilirubin Urine 1+ (Negative); Blood Urine 3+ (Negative); Glucose Urine UA Norm (Normal); Ketones Urine 1+ (Negative); Leukocyte Esterase Urine Trace (Negative); Nitrate Urine Negative (Negative); Protein Urine 1+ (Negative); Specific Gravity, Urine 1.025 (1.005-1.030); Urine Appearance Cloudy (CLEAR); Urine Color Yellow (Yellow); Urobilinogen Urine 1 mg/dL (Negative); pH Urine 5 (5-7)
[2024-03-06] MEDS: iohexol 350 mg/mL 500 mL Btl (per mL) IV (12:04)
[2024-03-06 12:07] LABS: Amorphous Sediment Urine TRACE /hpf; Bacteria Urine 1+ /hpf; Mucus Urine 2+ /hpf; Squamous Epithelial Cell Urine 15-25 /hpf (0-5); WBC Urine 0-4 /hpf (0-5)
[2024-03-06 12:08] LABS: Add Urine Culture? No
[2024-03-06 12:25] LABS: Chol HDL Ratio 5.48 mg/dL (0.0-4.40); Cholesterol 219 mg/dL (0-200); HDL Cholesterol 40 mg/dL (60-100); Triglycerides 606 mg/dL (0-150)
--- NOTE | 2024-03-06 12:32 | ED_ITS ---
HPI - Abdominal Pain 2 General: Chief Complaint: Abdominal Pain Stated Complaint: abd pain Time Seen by Provider: 03/06/24 10:25 History of Present Illness: 28-year-old female with a history of dep ression and alcoholic pancreatitis who presents emergency room with abdominal pain, nausea and vomiting. She says she had started drinking again and drank quite a bit yesterday and this morning she woke up with severe abdominal pain nausea and vomiting. She says it feels like when she has had pancreatitis in the past. Epigastric pain. No fevers. No abdominal swelling. No chest pain. No altered mental status. She is standing in the room and does not want to sit down because she says it makes her very uncomfortable. Review of Systems 2 Narrative: Constitutional symptoms: Negative except as documented in HPI. Skin symptoms: Negative except as documented in HPI. Eye symptoms: Negative except as documented in HPI. ENMT symptoms: Negative except as documented in HPI. Respiratory symptoms: Negative except as documented in HPI. Cardiovascular symptoms: Negative except as documented in HPI. Gastrointestinal symptoms: Negative except as documented in HPI. Genitourinary symptoms: Negative except as documented in HPI. Musculoskeletal symptoms: Negative except as documented in HPI. Neurologic symptoms: Negative except as documented in HPI. Psychiatric symptoms: Negative except as documented in HPI. Endocrine symptoms: Negative except as documented in HPI. PFSH ED 2 PFSH: Medical History (Updated 03/06/24 @ 12:56 by Tiana Kulkarni MD) Insomnia Acid reflux Body mass index (BMI) of 30 to 39 in adult Allergic rhinitis due to allergen delivery delivered Smoker Plaque psoriasis Depression Surgical History (Updated 10/07/23 @ 22:22 by Michael Hearn MD) History of Family History (Updated 10/07/23 @ 22:23 by Michael Hearn MD) Mother CAD (coronary artery disease) Social History Smoking and tobacco/nicotine status: current every day tobacco/nicotine user Alcohol intake: current Alcohol intake frequency: few times a week Physical Exam 2 Narrative: EXAM NARRATIVE: General: Alert, no acute distress. Skin: Warm, dry. Head: Normocephalic, atraumatic. Neck: Supple, trachea midline. Eye: Extraocular movements are intact. Ears, nose, mouth and throat: mucosa moist. Cardiovascular: Regular, Normal peripheral perfusion. Respiratory: Lungs are clear to auscultation, respirations are non-labored, breath sounds are equal, Symmetrical chest wall expansion. Gastrointestinal: Soft, moderate epigastric pain to palpation, Non distended Musculoskeletal: Normal ROM, no deformity. Neurological: Alert and oriented, No focal neurological deficit observed. Psychiatric: Cooperative, appropriate mood & affect. Course 2 Vital Signs: Vital signs: Vital Signs Temperature 98.2 F 03/06/24 10:58 Pulse Rate 73 03/06/24 11:57 Respiratory Rate 20 H 03/06/24 11:56 Blood Pressure 135/85 03/06/24 11:57 Pulse Oximetry 98 03/06/24 11:57 Oxygen Delivery Me thod Room Air 03/06/24 10:58 MDM - Abdominal Pain Medical Decision Making Medical decision making: Differential diagnosis including but not limited to and based on the above HPI, review of systems and physical exam: Primary concern would be for alcohol induced pancreatitis. Lipase was ordered. Also would have concern for hepatitis. Liver enzymes ordered. CBC and a BMP were ordered as well. Orders placed to evaluate differential diagnosis based on the above differential, HPI and physical exam Lab Review: Laboratory results were reviewed and interpreted by myself the emergency room physician. Patient has an elevated lipase of 8050. No leukocytosis. Mild elevation in her liver enzymes. A lipid panel was ordered as well. This was not significantly elevated. I reviewed the patient's medical record. Reexamination: Patient has some improvement with pain medications and fluids. No altered mental status. No focal motor deficits. Consultation: I spoke with Dr. Us who requests a CT scan and lipid panel before admission. CT of the abdomen pelvis with contrast: There are small pseudocyst of the pancreas. No other acute process. 1 was there previously. This was reviewed and interpreted by myself the emergency room physician. I also reviewed the radiology report. Assessment and plan: Alcoholic pancreatitis Dehydration ?2 L normal saline bolus, Dilaudid and Zofran in the emergency room. -I discussed the patient with the hospitalist on-call who is admitting the patient. - Discussed findings and plan with patient. Answered any questions. - All laboratory values were reviewed and interpreted personally by myself, the ER physician - All imaging was reviewed and interpreted personally by myself, the ER physician. - Evaluation and treatment of this problem were appropriate in the emergency setting Lab Data 03/06/24 10:50 03/06/24 10:50 Labs/Radiology: Radiology Impressions Abdomen/Pelvis CT 03/06/24 11:47 IMPRESSION: 1. Peripancreatic fluid with new dorsal peripancreatic pseudocysts described above. 2. Persistent but improved findings of acute pancreatitis with peripancreatic fluid. Smaller developing pseudocyst along the pancreatic tail. 3. No hydronephrosis in either kidney. 4. Diffuse fatty infiltration of liver. 5. Small esophageal hiatal hernia. 6. No other significant changes. Laboratory Results WBC 7.63 10^3/uL (3.29-11.43) 03/06/24 10:50 RBC 5.18 10^6/uL (3.85-5.65) 03/06/24 10:50 Hgb 16.20 g/dL (11.27-16.99) 03/06/24 10:50 Hct 46.8 % (36-47) 03/06/24 10:50 MCV 90.3 fl (85-98) 03/06/24 10:50 MCH 31.3 pg (27-33) 03/06/24 10:50 MCHC 34.6 g/dL (30-55) 03/06/24 10:50 RDW 12.9 % (12.1-15.1) 03/06/24 10:50 Plt Count 298 10^3/cmm (157-399) 03/06/24 10:50 MPV 8.5 fL (7.4-10.4) 03/06/24 10:50 Neut % (Auto) 69.5 % 03/06/24 10:50 Lymph % (Auto) 23.6 % 03/06/24 10:50 [place] % (Auto) 4.6 % 03/06/24 10:50 Eos % (Auto) 1.6 % 03/06/24 10:50 Baso % (Auto) 0.4 % 03/06/24 10:50 Neut # (Auto) 5.31 10^3/uL (1.8-7.7) 03/06/24 10:50 Lymph # (Auto) 1.8 10^3/uL (0.8-4.8) 03/06/24 10:50 [place] # (Auto) 0.4 10^3/uL (0.2-0.9) 03/06/24 10:50 Eos # (Auto) 0.1 10^3/uL (0.0-0.8) 03/06/24 10:50 Baso # (Auto) 0.0 10^3/uL (0.0-0.1) 03/06/24 10:50 Nucleated RBC % (auto) 0 % 03/06/24 10:50 Nucleated RBCs # 0.0 /100WBC 03/06/24 10:50 Sodium 138 mmol/L (136-145) 03/06/24 10:50 Potassium 3.6 mmol/L (3.5-5.1) 03/06/24 10:50 Chloride 103 mmol/L (98-107) 03/06/24 10:50 Carbon Dioxide 23 mmol/L (22-29) 03/06/24 10:50 Anion Gap 15.6 (5-19) 03/06/24 10:50 BUN 10 mg/dL (6-20) 03/06/24 10:50 Creatinine 0.7 mg/dL (0.5-0.9) 03/06/24 10:50 GFR Calculation 100.4 mL/min (90-130) 03/06/24 10:50 Glucose 129 mg/dL (65-115) H 03/06/24 10:50 Calculated Osmolality 287 mOsm/kg (285-295) 03/06/24 10:50 Lactic Acid 1.6 mmol/L (0.5-2.2) 03/06/24 10:50 Calcium 9.3 mg/dL (8.5-10.5) 03/06/24 10:50 Total Bilirubin 0.5 mg/dL (0.15-1.2) 03/06/24 10:50 AST 73 U/L (0-32) H 03/06/24 10:50 ALT 77 U/L (0-33) H 03/06/24 10:50 Alkaline Phosphatase 125 U/L (35-105) H 03/06/24 10:50 C-Reactive Protein 8.9 mg/L (0.0-4.9) H 03/06/24 10:50 Total Protein 7.6 g/dL (6.6-8.7) 03/06/24 10:50 Albumin 4.2 g/dL (3.5-5.2) 03/06/24 10:50 Globulin 3.4 g/dL (1.3-4.6) 03/06/24 10:50 Triglycerides 606 mg/dL (0-150) H 03/06/24 10:50 Cholesterol 219 mg/dL (0-200) H 03/06/24 10:50 LDL Cholesterol Direct 98 mg/dL (0-100) 03/06/24 10:50 LDL Cholesterol, Calc Not Reportable 03/06/24 10:50 HDL Cholesterol 40 mg/dL (60-100) L 03/06/24 10:50 LDL/HDL Ratio Not Reportable 03/06/24 10:50 Cholesterol/HDL Ratio 5.48 mg/dL (0.0-4.40) H 03/06/24 10:50 Lipase 1040 U/L (13-60) H 03/06/24 10:50 HCG, Qual Negative (Negative) 03/06/24 11:00 Urine Color Yellow (Yellow) 03/06/24 11:00 Urine Appearance Cloudy (CLEAR) A 03/06/24 11:00 Urine pH 5 (5-7) 03/06/24 11:00 Ur Specific [place] 1.025 (1.005-1.030) 03/06/24 11:00 Urine Protein 1+ (Negative) H 03/06/24 11:00 Urine Glucose (UA) Norm (Normal) 03/06/24 11:00 Urine Ketones 1+ (Negative) H 03/06/24 11:00 Urine Blood 3+ (Negative) H 03/06/24 11:00 Urine Nitrate Negative (Negative) 03/06/24 11:00 Urine Bilirubin 1+ (Negative) H 03/06/24 11:00 Urine Urobilinogen 1 mg/dL (Negative) H 03/06/24 11:00 Ur Leukocyte Esterase Trace (Negative) H 03/06/24 11:00 Urine RBC 5-10 /hpf (0-2) H 03/06/24 11:00 Urine WBC 0-4 /hpf (0-5) H 03/06/24 11:00 Ur Squamous Epith Cells 15-25 /hpf (0-5) H 03/06/24 11:00 Amorphous Sediment Trace /hpf 03/06/24 11:00 Urine Bacteria 1+ /hpf (NONE) H 03/06/24 11:00 Urine Mucus 2+ /hpf 03/06/24 11:00 Urine Opiates Screen Negative ng/mL (Negative) 03/06/24 11:00 Ur Barbiturates Screen Negative ng/mL (Negative) 03/06/24 11:00 Ur Phencyclidine Scrn Negative ng/mL (Negative) 03/06/24 11:00 Ur Amphetamines Screen Positive ng/mL (Negative) H 03/06/24 11:00 U Benzodiazepines Scrn Negative ng/mL (Negative) 03/06/24 11:00 Urine Cocaine Screen Negative ng/mL (Negative) 03/06/24 11:00 U Marijuana (THC) Screen Positive ng/mL (Negative) H 03/06/24 11:00 Ethyl Alcohol < 10 mg/dL (0-10) 03/06/24 10:50 All radiology interpretation(s) finalized by discharge Discharge Plan Discharge Patient Disposition: Admitted As Inpatient Clinical Impression: Acute alcoholic pancreatitis Condition: Stable Coding Level of Care Code ED [employer] Manager for Neil Rojas
[2024-03-06 12:45] LABS: LDL Cholesterol Direct 98 mg/dL (0-100)
[2024-03-06 13:12] LABS: Alcohol Level < 10 mg/dL (0-10)
[2024-03-06 13:13] LABS: Amphetamines Screen Urine Positive (Negative); Barbiturates Screen Urine Negative (Negative); Benzodiazepines Screen Urine Negative (Negative); Cocaine Screen Urine Negative (Negative); Opiate Screen Urine Negative (Negative); PCP Screen Urine Negative (Negative); THC Screen Urine Positive (Negative)
--- NOTE | 2024-03-06 13:15 | P.HP_ITS ---
Providers/Chief Complaint 2 Primary Care Provider: Christoph Chapman MD Chief Complaint: abd pain History of Present Illness Yara Rodriguez is a 28 year old female with past medical history of pancreatitis, alcohol abuse presented to the ER today because of abdominal pain more so in epigastric region along with nausea which started today morning. She had not noticed any vomiting but is not able to maintain her oral intake. Patient has been consuming alcohol daily with last binge of alcohol consumption last night. In ER she was found to have a lipase level of more than thousand. Have requested for CT abdomen pelvis and lipid panel results prior to admission to rule out hypertriglyceridemia Review of Systems 2 General: Reports: 10 or more systems reviewed and unremarkable except in HPI and below Const: Denies: fever(s), chills, body aches, change in appetite, change in weight, malaise, night sweats, diaphoresis, change in sleep pattern, daytime sleepiness or snoring Eyes: Denies: change in vision, blurry vision, photophobia, eye discomfort or eye discharge ENMT: Denies: throat pain, enlarged tonsils, hoarseness, mouth pain, oral sores, dry mouth, tinnitus, nasal congestion or post nasal drip Card: Denies: chest pain, palpitations, irregular heart rhythm, edema, swelling of feet/ankles, lightheadedness, syncope, pre-syncope, dyspnea on exertion, orthopnea, leg pain with exertion or acrocyanosis Resp: Denies: dyspnea, productive cough, non-productive cough, wheezing, stridor, pain on inspiration, change in phlegm color, hemoptysis or chest congestion GI: Denies: abdominal pain, nausea, vomiting, hematemesis, coffee ground emesis, dysphagia, heartburn, diarrhea, constipation, bloating, GI cramping, change in bowel habits, pain on defecation, hematochezia or melena : Denies: flank pain, dysuria, urinary frequency, urinary urgency, urinary hesitancy, nocturia or hematuria Musc: Denies: neck pain, back pain, extremity pain, joint pain, joint swelling, joint redness, joint stiffness or limited range of motion Neuro: Denies: headache(s), numbness in extremities, weakness in extremities, sensory changes, lack of coordination, difficulty walking, frequent falls, dizziness, vertigo, confusion, Slurred speech present, difficulty communicating thoughts or seizure-like activity Psych: Denies: anxiety, depression, mood swings, panic attacks, hopelessness or irritability Endo: Denies: polyuria, polydipsia, tired all the time, cold intolerance, excessive sweating, flushing or heat intolerance [place]/Lymph: Denies: easy bruising or easy bleeding All/Imm: Denies: tongue swelling, facial swelling or acute wheezing Medications/Allergies Home Medications Medication Instructions Recorded Confirmed Last Taken Type trazodone 50 mg tablet 50 mg PO BEDTIME sleep #90 tabs 12/08/23 03/06/24 03/05/24 Rx pantoprazole 20 mg tablet,delayed 20 mg PO DAILY PRN acid reflux #30 02/07/24 03/06/24 Unknown Rx release tabs clobetasol 0.05 % topical ointment See Rx Instructions .Route .COMPLEX 03/06/24 03/06/24 Unknown History ketoconazole 2 % shampoo See Rx Instructions .Route .COMPLEX 03/06/24 03/06/24 Unknown History vitamins-iron fumarate 65 1 tab PO DAILY 03/06/24 03/06/24 03/05/24 History mg iron-folic acid 1 mg tablet triamcinolone acetonide 0.1 % See Rx Instructions .Route .COMPLEX 03/06/24 03/06/24 Unknown History topical ointment Allergies Allergy/AdvReac Type Severity Reaction Status Date / Time No Known Allergies Allergy Verified 10/19/23 09:46 PFSH Acute 2 PFSH: Medical History (Updated 03/06/24 @ 12:56 by Tiana Kulkarni MD) Insomnia Acid reflux Body mass index (BMI) of 30 to 39 in adult Allergic rhinitis due to allergen delivery delivered Smoker Plaque psoriasis Depression Surgical History (Updated 10/07/23 @ 22:22 by Michael Hearn MD) History of Family History (Updated 10/07/23 @ 22:23 by Michael Hearn MD) Mother CAD (coronary artery disease) Social History Smoking and tobacco/nicotine status: current every day tobacco/nicotine user Alcohol intake: current Alcohol intake frequency: few times a week Vitals/I&O/Wt Last Vital Signs Temp 98.2 F 03/06/24 10:58 Pulse 73 03/06/24 11:57 Resp 20 H 03/06/24 11:56 BP 135/85 03/06/24 11:57 Pulse Ox 98 03/06/24 11:57 O2 Del Method Room Air 03/06/24 10:58 Weight last 48 hrs Weight 77.111 kg Physical Exam 2 Narrative: General: No acute distress, AO x3 sleeping on examination, have just received IV Dilaudid HEENT: PERRLA, pupils bilaterally equal and reactive Chest: Normal vesicular breath sounds, no added sounds, equal good air entry bilaterally CVS: S1-S2 regular, no murmurs, no tachycardia, no gallops, no rubs Abdomen: Soft, tenderness in epigastric region r, no organomegaly, bowel sounds present Neuro: No focal deficits, no facial deformity, AO x3, power 5/5 in all limbs Data 03/06/24 10:50 03/06/24 10:50 A&P Assessment and plan (1) Acute alcoholic pancreatitis: Lipase level more than 1000. Recurrent episode of pancreatitis. CT on pelvis consistent with pseudocyst and peripancreatic fluid. No leukocytosis for now. Most likely in setting of chronic alcohol use. Conservative treatment. NPO. IV fluid with normal saline at 100 cc/h. Zofran as needed, Protonix twice daily. IV Dilaudid 0.5 every 6 as needed. Triglyceride levels elevated to around 600. Triglyceride levels are borderline elevated beyond the threshold of 500 and patient needs an insulin drip. Given borderline blood sugars for now we will start on IV fluids and repeat triglyceride levels in 12 hours. If persistently elevated with no resolution of symptoms or getting worse and we will plan to transition to ICU and start on insulin drip. 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 Denies any for now. Check urine drug screen. (3) Alcoholism: States she been doing alcohol daily. Check alcohol level. [facility] protocol. (4) Body mass index (BMI) of 30 to 39 in adult: Plan Full code N.p.o. Heparin 5000 for DVT prophylaxis Protonix OPD prophylaxis Attestations 2 Medical Necessity Statement*: Admission for more than 2 midnights for management of acute alcoholic pancreatitis, hypertriglyceridemia Diagnoses Acute alcoholic pancreatitis K85.20 Amphetamine abuse F15.10 Alcoholism F10.20 Body mass index (BMI) of 30 to 39 in adult
--- NOTE | 2024-03-06 14:38 | PC.NURSE ---
Medication Delay: Sodium Chloride ordered @1323 delayed d/t waiting on current fluid infusion to finish.
[2024-03-06] MEDS: HYDROmorphone 1 mg/mL INJ 1 mL 0.5 MG IVP ×3 (14:48→23:44)
[2024-03-06] MEDS: sodium chloride 0.9% 1,000 ML 100 ML IV (14:54)
[2024-03-06] MEDS: pantoprazole 40 mg SDV IVP (17:43)
[2024-03-06] MEDS: ondansetron 2 mg/ML SDV 2 mL 4 MG IVP (17:43)
[2024-03-06] MEDS: heparin 5,000 unit/mL INJ 1 mL 5000 UNIT SUBCUT (17:43)
[2024-03-06] MEDS: folic acid 1 MG, multivitamin inj 10 ML, thiamine 100 MG in sodium chloride 0.9% 1,000 ML 252.800000000000011 MG IV (17:48)
[2024-03-06] MEDS: trazodone 50 mg Tablet PO (20:35)
[2024-03-07] VITALS (11 sets, daily range): BP systolic 114–125; BP diastolic 70–84; PULSE 88–97; RESP 14–18; TEMP 36.3–37; O2SAT 94–97
[2024-03-07] MEDS: sodium chloride 0.9% 1,000 ML 100 ML IV ×3 (00:49→22:24)
[2024-03-07] MEDS: heparin 5,000 unit/mL INJ 1 mL 5000 UNIT SUBCUT ×2 (03:42→16:47)
[2024-03-07] MEDS: HYDROmorphone 1 mg/mL INJ 1 mL 0.5 MG IVP ×5 (03:44→20:43)
[2024-03-07 05:23] LABS: Basophils % 0.2 %; Eosinophils # 0.3 10^3/uL (0.0-0.8); Eosinophils % 2.5 %; Hematocrit 43.5 % (36-47); Lymphocytes # 1.9 10^3/uL (0.8-4.8); Lymphocytes % 16.3 %; Mean Corpuscular HGB Conc 33.8 g/dL (30-55); Mean Corpuscular Volume 91.8 fl (85-98); Mean Platelet Volume 8.8 fL (7.4-10.4); Monocytes # 0.5 10^3/uL (0.2-0.9); Monocytes % 4.2 %; Neutrophils # 8.91 10^3/uL (1.8-7.7); Neutrophils % 76.5 %; Nucleated Red Blood Cells % 0 %; Platelet Count 281 10^3/cmm (157-399); Red Blood Count 4.74 10^6/uL (3.85-5.65); Red Cell Distribution Width 12.8 % (12.1-15.1); White Blood Count 11.63 10^3/uL (3.29-11.43)
[2024-03-07 05:44] LABS: Alanine Aminotransferase 48 U/L (0-33); Albumin Level 3.4 g/dL (3.5-5.2); Alkaline Phosphatase 104 U/L (35-105); Anion Gap 11.1 (5-19); Aspartate Amino Transferase 32 U/L (0-32); Blood Urea Nitrogen 5 mg/dL (6-20); Calcium 8.1 mg/dL (8.5-10.5); Carbon Dioxide 21 mmol/L (22-29); Chloride 106 mmol/L (98-107); Creatinine Clr Calc Pharmacy 162.4963; Globulin 2.8 g/dL (1.3-4.6); Glucose 100 mg/dL (65-115); Magnesium 1.6 mg/dL (1.7-2.3); Osmolality Calculated 277 mOsm/kg (285-295); Phosphorus 2.3 mg/dL (2.5-4.5); Potassium 3.1 mmol/L (3.5-5.1); Sodium 135 mmol/L (136-145); Total Bilirubin 0.7 mg/dL (0.15-1.2); Total Protein 6.2 g/dL (6.6-8.7)
[2024-03-07 05:47] LABS: Triglycerides 544 mg/dL (0-150)
[2024-03-07 06:00] LABS: LDL Cholesterol Direct 97 mg/dL (0-100)
[2024-03-07] MEDS: thiamine 100 mg Tablet PO (08:24)
[2024-03-07] MEDS: multivitamin therapeutic Tablet 1 TAB PO (08:24)
[2024-03-07] MEDS: folic acid 1 mg Tablet PO (08:24)
--- NOTE | 2024-03-07 15:05 | P.PN_ITS ---
Subjective 2 Subjective: No acute events overnight. Patient states she is feeling a lot better. Nausea has resolved. States she is hungry. Vitals/I&O/Wt Last Vital Signs Temp 98.6 F 03/07/24 11:44 Pulse 94 03/07/24 11:44 Resp 14 03/07/24 12:34 BP 125/80 03/07/24 11:44 Pulse Ox 95 03/07/24 12:34 O2 Del Method Room Air 03/07/24 11:44 03/07/24 03/07/24 03/07/24 06:59 14:59 22:59 Intake Total 1111.667 / 4362.867 1118 / 1118 Balance 1111.667 / 4362.867 1118 / 1118 Weight last 48 hrs Weight 79.424 kg Weight 79.424 kg Weight 77.111 kg Weight 77.111 kg Physical Exam 2 Narrative: General: No acute distress, AO x3 sleeping on examination, have just received IV Dilaudid HEENT: PERRLA, pupils bilaterally equal and reactive Chest: Normal vesicular breath sounds, no added sounds, equal good air entry bilaterally CVS: S1-S2 regular, no murmurs, no tachycardia, no gallops, no rubs Abdomen: Soft, tenderness in epigastric region r, no organomegaly, bowel sounds present Neuro: No focal deficits, no facial deformity, AO x3, power 5/5 in all limbs Data 03/07/24 04:45 03/07/24 04:45 A&P Assessment and plan (1) Acute alcoholic pancreatitis: Lipase level more than 1000. Recurrent episode of pancreatitis. CT on pelvis consistent with pseudocyst and peripancreatic fluid. No leukocytosis for now. Most likely in setting of chronic alcohol use. Conservative treatment. NPO. IV fluid with normal saline at 100 cc/h. Zofran as needed, Protonix twice daily. IV Dilaudid 0.5 every 6 as needed. Triglyceride levels elevated to around 600. Triglyceride levels are borderline elevated beyond the threshold of 500 and patient needs an insulin drip. Given borderline blood sugars for now we will start on IV fluids and repeat triglyceride levels in 12 hours. If persistently elevated with no resolution of symptoms or getting worse and we will plan to transition to ICU and start on insulin drip. 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 Denies any for now. Check urine drug screen. (3) Alcoholism: States she been doing alcohol daily. Check alcohol level. [facility] protocol. (4) Body mass index (BMI) of 30 to 39 in adult: Plan Full code N.p.o. Heparin 5000 for DVT prophylaxis Protonix OPD prophylaxis Plan for the day: Continue with IV hydration current pain medication. Triglyceride levels around 544. Improving slightly. But as patient is clinically picture is improving for now we will continue to monitor on current treatment. Replace potassium with 80 meq oral. Advance diet to clear liquid diet and monitor. Continue [facility] protocol. Attestations 2 Medical Necessity Statement*: Requested hospitalization for management of acute alcoholic pancreatitis. Diagnoses Acute alcoholic pancreatitis K85.20 Amphetamine abuse F15.10 Alcoholism F10.20 Body mass index (BMI) of 30 to 39 in adult
[2024-03-07] MEDS: potassium chloride ER 20 mEq Tablet 40 MEQ PO ×2 (16:47→16:48)
[2024-03-07] MEDS: pantoprazole 40 mg SDV IVP (16:47)
[2024-03-07] MEDS: trazodone 50 mg Tablet PO (20:44)
[2024-03-08] VITALS (8 sets, daily range): BP systolic 109–139; BP diastolic 65–92; PULSE 85–103; RESP 15–98; TEMP 36.6–36.8; O2SAT 93–95
[2024-03-08] MEDS: heparin 5,000 unit/mL INJ 1 mL 5000 UNIT SUBCUT (03:19)
[2024-03-08] MEDS: HYDROmorphone 1 mg/mL INJ 1 mL 0.5 MG IVP ×3 (03:19→12:09)
[2024-03-08] MEDS: sodium chloride 0.9% 1,000 ML 100 ML IV (08:39)
[2024-03-08] MEDS: folic acid 1 mg Tablet PO (08:39)
[2024-03-08] MEDS: thiamine 100 mg Tablet PO (08:39)
[2024-03-08] MEDS: multivitamin therapeutic Tablet 1 TAB PO (08:39)
--- NOTE | 2024-03-08 11:24 | P.DS_ITS ---
Discharge Providers Date of Admission: 03/06/24 15:37 Date of Discharge: March 08, 2024 Attending Provider at Admission: Miguel Us MD Attending Provider at Discharge: Miguel Us MD Primary Care Provider: Christoph Chapman MD Diagnoses at Discharge Discharge Diagnosis (1) Acute alcoholic pancreatitis: Status: Acute (2) Amphetamine abuse: Status: Acute (3) Alcoholism: Status: Acute (4) Body mass index (BMI) of 30 to 39 in adult: Status: Acute Reason for Visit Reason for Visit: abd pain Hospital Course Hospital Course Yara Rodriguez is a 28 year old female with past medical history of pancreatitis, alcohol abuse presented to the ER today because of abdominal pain more so in epigastric region along with nausea which started today morning. She had not noticed any vomiting but is not able to maintain her oral intake. Patient has been consuming alcohol daily with last binge of alcohol consumption last night. In ER she was found to have a lipase level of more than 1000. Patient was admitted for further evaluation and management of acute pancreatitis. She started on conservative treatment with IV hydration and was kept NPO. Gradually she is advanced to clear liquid diet which he has been able to tolerate for last 24 hours. She has been discharged in medically stable condition with advised to continue clear liquid diet for next 1 week and advance gradually to a regular diet within next 2 weeks. She is also advised to abstain from alcohol intake as much as possible. Physical Exam Narrative: General: No acute distress, AO x3 HEENT: PERRLA, pupils bilaterally equal and reactive Chest: Normal vesicular breath sounds, no added sounds, equal good air entry bilaterally CVS: S1-S2 regular, no murmurs, no tachycardia, no gallops, no rubs Abdomen: Soft, tenderness in epigastric region r, no organomegaly, bowel sounds present Neuro: No focal deficits, no facial deformity, AO x3, power 5/5 in all limbs Discharge Data Studies Completed and Pending Completed Studies During Hospitalization Category Date Time Status CT abdomen pelvis w con* [id number] Stat Cat Scan 03/06/24 11:47 Completed Radiology Impressions Abdomen/Pelvis CT 03/06/24 11:47 IMPRESSION: 1. Peripancreatic fluid with new dorsal peripancreatic pseudocysts described above. 2. Persistent but improved findings of acute pancreatitis with peripancreatic fluid. Smaller developing pseudocyst along the pancreatic tail. 3. No hydronephrosis in either kidney. 4. Diffuse fatty infiltration of liver. 5. Small esophageal hiatal hernia. 6. No other significant changes. Laboratory Results WBC 11.63 10^3/uL (3.29-11.43) H 03/07/24 04:45 RBC 4.74 10^6/uL (3.85-5.65) 03/07/24 04:45 Hgb 14.70 g/dL (11.27-16.99) 03/07/24 04:45 Hct 43.5 % (36-47) 03/07/24 04:45 MCV 91.8 fl (85-98) 03/07/24 04:45 MCH 31.0 pg (27-33) 03/07/24 04:45 MCHC 33.8 g/dL (30-55) 03/07/24 04:45 RDW 12.8 % (12.1-15.1) 03/07/24 04:45 Plt Count 281 10^3/cmm (157-399) 03/07/24 04:45 MPV 8.8 fL (7.4-10.4) 03/07/24 04:45 Neut % (Auto) 76.5 % 03/07/24 04:45 Lymph % (Auto) 16.3 % 03/07/24 04:45 [place] % (Auto) 4.2 % 03/07/24 04:45 Eos % (Auto) 2.5 % 03/07/24 04:45 Baso % (Auto) 0.2 % 03/07/24 04:45 Neut # (Auto) 8.91 10^3/uL (1.8-7.7) H 03/07/24 04:45 Lymph # (Auto) 1.9 10^3/uL (0.8-4.8) 03/07/24 04:45 [place] # (Auto) 0.5 10^3/uL (0.2-0.9) 03/07/24 04:45 Eos # (Auto) 0.3 10^3/uL (0.0-0.8) 03/07/24 04:45 Baso # (Auto) 0.0 10^3/uL (0.0-0.1) 03/07/24 04:45 Nucleated RBC % (auto) 0 % 03/07/24 04:45 Nucleated RBCs # 0.0 /100WBC 03/07/24 04:45 Sodium 135 mmol/L (136-145) L 03/07/24 04:45 Potassium 3.1 mmol/L (3.5-5.1) L 03/07/24 04:45 Chloride 106 mmol/L (98-107) 03/07/24 04:45 Carbon Dioxide 21 mmol/L (22-29) L 03/07/24 04:45 Anion Gap 11.1 (5-19) 03/07/24 04:45 BUN 5 mg/dL (6-20) L 03/07/24 04:45 Creatinine 0.5 mg/dL (0.5-0.9) 03/07/24 04:45 GFR Calculation 148.0 mL/min (90-130) H 03/07/24 04:45 Glucose 100 mg/dL (65-115) 03/07/24 04:45 Calculated Osmolality 277 mOsm/kg (285-295) L 03/07/24 04:45 Lactic Acid 1.6 mmol/L (0.5-2.2) 03/06/24 10:50 Calcium 8.1 mg/dL (8.5-10.5) L 03/07/24 04:45 Phosphorus 2.3 mg/dL (2.5-4.5) L 03/07/24 04:45 Magnesium 1.6 mg/dL (1.7-2.3) L 03/07/24 04:45 Total Bilirubin 0.7 mg/dL (0.15-1.2) 03/07/24 04:45 AST 32 U/L (0-32) 03/07/24 04:45 ALT 48 U/L (0-33) H 03/07/24 04:45 Alkaline Phosphatase 104 U/L (35-105) 03/07/24 04:45 C-Reactive Protein 8.9 mg/L (0.0-4.9) H 03/06/24 10:50 Total Protein 6.2 g/dL (6.6-8.7) L 03/07/24 04:45 Albumin 3.4 g/dL (3.5-5.2) L 03/07/24 04:45 Globulin 2.8 g/dL (1.3-4.6) 03/07/24 04:45 Triglycerides 544 mg/dL (0-150) H 03/07/24 04:45 Cholesterol 219 mg/dL (0-200) H 03/06/24 10:50 LDL Cholesterol Direct 97 mg/dL (0-100) 03/07/24 04:45 LDL Cholesterol, Calc Not Reportable 03/06/24 10:50 HDL Cholesterol 40 mg/dL (60-100) L 03/06/24 10:50 LDL/HDL Ratio Not Reportable 03/06/24 10:50 Cholesterol/HDL Ratio 5.48 mg/dL (0.0-4.40) H 03/06/24 10:50 Lipase 1040 U/L (13-60) H 03/06/24 10:50 HCG, Qual Negative (Negative) 03/06/24 11:00 Urine Color Yellow (Yellow) 03/06/24 11:00 Urine Appearance Cloudy (CLEAR) A 03/06/24 11:00 Urine pH 5 (5-7) 03/06/24 11:00 Ur Specific [place] 1.025 (1.005-1.030) 03/06/24 11:00 Urine Protein 1+ (Negative) H 03/06/24 11:00 Urine Glucose (UA) Norm (Normal) 03/06/24 11:00 Urine Ketones 1+ (Negative) H 03/06/24 11:00 Urine Blood 3+ (Negative) H 03/06/24 11:00 Urine Nitrate Negative (Negative) 03/06/24 11:00 Urine Bilirubin 1+ (Negative) H 03/06/24 11:00 Urine Urobilinogen 1 mg/dL (Negative) H 03/06/24 11:00 Ur Leukocyte Esterase Trace (Negative) H 03/06/24 11:00 Urine RBC 5-10 /hpf (0-2) H 03/06/24 11:00 Urine WBC 0-4 /hpf (0-5) H 03/06/24 11:00 Ur Squamous Epith Cells 15-25 /hpf (0-5) H 03/06/24 11:00 Amorphous Sediment Trace /hpf 03/06/24 11:00 Urine Bacteria 1+ /hpf (NONE) H 03/06/24 11:00 Urine Mucus 2+ /hpf 03/06/24 11:00 Urine Opiates Screen Negative ng/mL (Negative) 03/06/24 11:00 Ur Barbiturates Screen Negative ng/mL (Negative) 03/06/24 11:00 Ur Phencyclidine Scrn Negative ng/mL (Negative) 03/06/24 11:00 Ur Amphetamines Screen Positive ng/mL (Negative) H 03/06/24 11:00 U Benzodiazepines Scrn Negative ng/mL (Negative) 03/06/24 11:00 Urine Cocaine Screen Negative ng/mL (Negative) 03/06/24 11:00 U Marijuana (THC) Screen Positive ng/mL (Negative) H 03/06/24 11:00 Ethyl Alcohol < 10 mg/dL (0-10) 03/06/24 10:50 Vitals Last Vital Signs Temp 98.2 F 03/08/24 07:45 Pulse 85 03/08/24 07:45 Resp 15 03/08/24 08:39 BP 123/80 03/08/24 07:45 Pulse Ox 95 03/08/24 08:39 O2 Del Method Room Air 03/08/24 07:45 Discharge Plan Discharge Patient Disposition: Home Condition: Stable Prescriptions: New folic acid 1 mg Tablet 1 mg PO DAILY Qty: 30 0RF Vitamin B-1 (mononitrate) 100 mg Tablet 100 mg PO DAILY Qty: 30 0RF Thera 400 mcg Tablet 1 tab PO DAILY Qty: 30 0RF Protonix 40 mg tablet,delayed release (DR/EC) 40 mg PO QAM Qty: 60 0RF hydrocodone-acetaminophen 5-300 mg tablet 1 tab PO BID PRN (Reason: pain) Qty: 10 0RF Continued trazodone 50 mg tablet 50 mg PO BEDTIME Qty: 90 1RF ketoconazole 2 % shampoo See Rx Instructions .ROUTE .COMPLEX Rx Instructions: APPLY TO SCALP TWO TO THREE TIMES WEEKLY. SET ON FOR 5 MINUTES BEFORE RINSING NEEDED FOR PSORIASIS. triamcinolone acetonide 0.1 % ointment See Rx Instructions .ROUTE .COMPLEX Rx Instructions: APPLY OINTMENT IN THIN FILM TWICE DAILY TO THICKENED AREAS OF ARMS AND LEGS. DO NOT USE FOR MORE THAN 2 WEEKS PER MONTH. AVOID GROIN AND UNDER ARMS vit-iron fum-folic ac 65 mg iron- 1 mg Tablet 1 tab PO DAILY clobetasol 0.05 % ointment See Rx Instructions .ROUTE .COMPLEX Rx Instructions: APPLY TO PLAQUES ON ARMS, AND LEGS TWICE DAILY. NO MORE THAN 2 WEEKS PER MONTH. NOT FOR FACE, GROIN, OR SKINFOLDS Discontinued pantoprazole 20 mg tablet,delayed release (DR/EC) 20 mg PO DAILY PRN (Reason: acid reflux) Qty: 30 0RF Discharge Orders: Discharge Order (Routine); Ordered 03/08/24 Ordered By: Miguel Us Referrals: Christoph Chapman MD [Primary Care Provider] - 7-10 days (We have notified your physician's clinic of the need for a follow-up appointment to be scheduled. If you have not heard from them within the next 2 business days, please call them directly. ) Discharge Diet: Advance as tolerated and Clear Liquid Discharge Activity: Resume usual activity and Increase activity as tolerated Patient Instructions: Alcohol Abuse, Hydrocodone/Acetaminophen (By mouth), Folic Acid (By mouth), Pantoprazole (By mouth), Pancreatitis (GEN), Opioid Safety Activity Restrictions/Additional Instructions: Continue with clear liquid diet for next 1 week and then gradually advance to a regular diet within next couple of weeks. Please try to avoid alcohol intake as much as possible. Please follow-up with a primary care provider within next 1 week. Take Protonix 40 mg daily. Discharge Attestations Time Spent in Discharge Care*: greater than 30 min Specific Discharge Activities: educating patient, discussing with pcp/other providers, discussing with egg caser/social workers/dc planners, documenting/other paperwork and evaluating patient/reviewing data Status at Discharge: Cognitive status at discharge: cognitively intact , Behavioral status at discharge: cooperative , Functional status at discharge: independent ambulation , Overall status at discharge: patient is progressing back to baseline Quality Metrics Clinical Quality Measures [ No reported AMI, CVA or VTE this stay] Coding Level of Care Code 99540 Total time (in minutes) for Discharge: 55 Diagnoses Acute alcoholic pancreatitis K85.20 Amphetamine abuse F15.10 Alcoholism F10.20 Body mass index (BMI) of 30 to 39 in adult
== END 2024-03-08 12:28 | disposition home or self-care (01) | DRG 440 ==
LOC: ER 15:08 → MEDSURG 15:39
PROVIDERS: Admitting Provider Student in an Organized Health Care Education/Training Program; Emergency Provider Emergency Medicine; PCP Family Medicine Adult Medicine; Visit Provider Student in an Organized Health Care Education/Training Program
DX: K85.20 Alcohol induced acute pancreatitis without necrosis or infection (principal); F15.10 Other stimulant abuse, uncomplicated; F10.10 Alcohol abuse, uncomplicated; Z68.30 Body mass index [BMI] 30.0-30.9, adult; F32.A Depression, unspecified; Z72.0 Tobacco use
CPT/HCPCS: 36415; 74177; 80053; 80061; 80306; 80307; 81001; 81025; 83605; 83690; 83721; 83735; 84100; 84478; 85025; 86140; 94664; 96372; 96374; 96375; 99285; C9113; J1170; J1644; J2405; J3411; J3490; J7030; Q9967